=== PATIENT | male | born 1960 | race Caucasian/White ===

== ENCOUNTER 2017-04-13 08:54 | Inpatient (IN) | payer OTHER ==
[~2017-04-13] VITALS: Ht 167.6 cm; Wt 78.0 kg
[2017-04-13] MEDS ORDERED: KETOROLAC 15 MG INJ IV STA (09:24)
[2017-04-13] MEDS ORDERED: SOD CHLORIDE 0.9% 1,000 ML IV STA ×2 (09:24→11:50)
[2017-04-13] MEDS ORDERED: ONDANSETRON 4 MG INJ IV STA (09:24)
[2017-04-13] MEDS ORDERED: NITROGLYCERIN (SL) 0.4 MG TAB SL ONE (09:30)
[2017-04-13] MEDS ORDERED: ASPIRIN 81 MG TAB PO ONE (09:30)
[2017-04-13] MEDS ORDERED: MULTI GTB (09:52)
[2017-04-13] MEDS ORDERED: CLOP75TA27 GTB (09:52)
[2017-04-13] MEDS ORDERED: DONE10TA7 GTB (09:53)
[2017-04-13] MEDS ORDERED: AMIN887L6 GTB (09:53)
[2017-04-13] MEDS ORDERED: DOCU-159 GTB (09:55)
[2017-04-13] MEDS ORDERED: BASAGLAR SUBCUTANE (09:55)
[2017-04-13] MEDS ORDERED: ONDA-43 GTB (09:56)
[2017-04-13] MEDS ORDERED: LEVE500S8 GTB (09:56)
[2017-04-13] MEDS ORDERED: IPRA3AMP INHALATION (09:57)
[2017-04-13 10:02] LABS: BASOPHIL # 0.1 10^3/ul (0.0-0.1); BASOPHILS % 1.1 % (0.0-2.0); HEMATOCRIT 37.6 % (42.0-52.0); LYMPHOCYTES # 1.3 10^3/ul (0.8-2.9); LYMPHOCYTES % 28.1 % (15.0-51.0); MEAN CORPUSCULAR HEMOGLOBIN 31.5 pg (29.0-33.0); MEAN CORPUSCULAR HGB CONC 34.6 g/dl (32.0-37.0); MEAN PLATELET VOLUME 10.8 fl (7.4-10.4); MONOCYTE # 0.4 10^3/ul (0.3-0.9); MONOCYTES % 7.9 % (0.0-11.0); NEUTROPHILS % 62.7 % (39.0-77.0); PLATELET COUNT 191 10^3/UL (140-415); RED BLOOD COUNT 4.13 10^6/ul (4.70-6.10); RED CELL DISTRIBUTION WIDTH 12.3 % (11.5-14.5); WHITE BLOOD COUNT 4.5 10^3/ul (4.8-10.8)
[2017-04-13 10:22] LABS: ALANINE AMINOTRANSFERASE 25 IU/L (13-69); ALBUMIN 4.2 g/dl (3.3-4.9); ALBUMIN/GLOBULIN RATIO 1.31; ALKALINE PHOSPHATASE 52 IU/L (42-121); ANION GAP 12 (8-16); ASPARTATE AMINO TRANSFERASE 14 IU/L (15-46); BILIRUBIN,INDIRECT 0.3 mg/dl (0-1.1); BILIRUBIN,TOTAL 0.3 mg/dl (0.2-1.3); BLOOD UREA NITROGEN 13 mg/dl (7-20); CALCIUM 9.3 mg/dl (8.4-10.2); CARBON DIOXIDE 26 mmol/L (21-31); CHLORIDE 105 mmol/L (97-110); CREATININE 0.76 mg/dl (0.61-1.24); GLUCOSE 312 mg/dl (70-220); POTASSIUM 4.4 mmol/L (3.5-5.1); SODIUM 139 mmol/L (135-144); TOTAL PROTEIN 7.4 g/dl (6.1-8.1)
--- NOTE | 2017-04-13 10:26 | RADRPT ---
PROCEDURE: XR Chest. CLINICAL INDICATION: Abdominal pain. TECHNIQUE: Single frontal view. COMPARISON: None. FINDINGS: The lungs are clear. The heart size is normal. There is no pleural effusion. There is no pneumothorax. IMPRESSION: 1. Normal chest radiograph. RPTAT: QQ .Mariano Mcmillan MD, Date Time Electronically viewed and signed by .Mariano Mcmillan MD, on 04/13/2017 10:26 .R/
[2017-04-13 10:41] LABS: TROPONIN-I < 0.012 ng/ml (0.00-0.12)
--- NOTE | 2017-04-13 10:42 | ERA ---
ER Documentation Chief Complaint Date/Time DATE: 04/13/17 TIME: 10:40 Chief Complaint CHEST PAIN, SOB, AUSTRALIAN SPEAKING, INFO FROM ETIQUETTE COACH HPI 56-year-old man complains of exertional chest pain and intermittent shortness of breath 1 week, he and his state they have an appointment with renal dialysis technician Dr. Harkins for possible diagnostic angiogram scheduled for next month but because of recent chest pain that he came to the ER for evaluation. He has had no fevers or chills, no claudication, no abdominal pain, no vomiting or diarrhea. Patient did suffer an CO 10 years ago he had no stent placement, and has a history of diabetes mellitus and hypertension ROS All systems reviewed and are negative except as per history of present illness. Medications Home Meds Reported Medications Acetaminophen* (Tylenol*) 500 Mg Tab, 500 MG PO Q4H Y for MILD PAIN LEVEL 1-3, TAB 04/13/17 Discontinued Reported Medications Ipratropium-Albuterol (Ipratropium-Albuterol) 0.5-3 Mg/3 Ml Ampul.neb, 3 ML INHALATION Q4 Y for WHEEZING AND SOB, #30 VIAL 04/13/17 Ondansetron Hcl* (Zofran*) 4 Mg Tab, 4 MG GTB Q4H Y for NAUSEA AND OR VOMITING, TAB 04/13/17 Levetiracetam* (Keppra*) 500 Mg/5 Ml Solution, 500 MG GTB BID, BOTTLE 04/13/17 [Basaglar] No Conflict Check, 20 UNITS SUBCUTANE QHS 04/13/17 Docusate Sodium* (Docusate Sodium*) 100 Mg Capsule, 100 MG GTB BID, #60 CAP 04/13/17 Donepezil* (Donepezil*) 10 Mg Tablet, 10 MG GTB DAILY, #30 TAB 04/13/17 Amino Acids/Protein Hydrolys (PRO-STAT AWC LIQUID) 887 Ml Liquid, 30 ML GTB DAILY 04/13/17 Clopidogrel Bisulfate (Clopidogrel) 75 Mg Tablet, 75 MG GTB DAILY, #30 TAB 04/13/17 Multivitamins* (Theragran*) 1 Tab Tab, 1 TAB GTB DAILY, TAB 04/13/17 Allergies Allergies: Coded Allergies: No Known Allergy (Unverified , 04/13/17) PMhx/Soc Hypertension, diabetes mellitus, coronary artery disease, previous CO Hx Miscellaneous Medical Probl: Yes (DIABETEDS, HIGH BLOOD PRESURE, NSTEMI) Hx Alcohol Use: No Hx Substance Use: No Hx Tobacco Use: No Smoking Status: Never smoker FmHx Family History: No diabetes Physical Exam Vitals Vital Signs Date Time Temp Pulse Resp B/P Pulse Ox O2 Delivery O2 Flow Rate FiO2 04/13/17 12:40 77 17 122/78 100 04/13/17 09:31 79 17 113/84 100 04/13/17 08:57 97.1 87 17 114/79 100 Physical Exam GENERAL: Well-developed, well-nourished, well-hydrated, in no apparent distress , looks nontoxic in appearance HEENT: Moist mucous membranes, pink conjunctiva, no cervical spine tenderness or step-off deformities, no goiter, no jaundice or icterus, extraocular movements intact without pain. No submandibular induration, and no pharyngeal erythema NEURO: Alert and oriented 3, cranial nerves II through XII intact bilaterally, pupils equal round reactive to light, no focal deficits or facial asymmetry, sensation intact distally Strength 5/5 in upper and lower extremities bilaterally CARDIAC: Regular rate and rhythm, no murmurs rubs or gallops LUNGS: Clear bilaterally no wheezing crackles or stridor ABDOMEN: Soft nontender, no guarding, no rigidity, no rebound, no psoas sign no obturator sign. Normoactive bowel sounds SKIN: Warm and dry to touch, no abrasions, contusions, or hematomas, no lacerations, no ecchymosis, no target lesions, and without ulcers EXTREMITIES: No clubbing cyanosis or edema, calves are bilaterally symmetrical, no Homans sign, no popliteal cord sign. Distal pulses equal and bilateral PSYCH: Normal affect without agitation or irritability Result Diagram: 04/13/1736 04/13/1736 Results 24 hrs Laboratory Tests Test 04/13/17 09:36 White Blood Count 4.510^3/ul Red Blood Count 4.1310^6/ul Hemoglobin 13.0g/dl Hematocrit 37.6% Mean Corpuscular Volume 91.0fl Mean Corpuscular Hemoglobin 31.5pg Mean Corpuscular Hemoglobin Concent 34.6g/dl Red Cell Distribution Width 12.3% Platelet Count 72970^3/UL Mean Platelet Volume 10.8fl Neutrophils % 62.7% Lymphocytes % 28.1% Monocytes % 7.9% Eosinophils % 0.0% Basophils % 1.1% Nucleated Red Blood Cells % 0.0/100WBC Neutrophils # (Manual) 2.810^3/ul Lymphocytes # 1.310^3/ul Monocytes # 0.410^3/ul Eosinophils # 0.010^3/ul Basophils # 0.110^3/ul Nucleated Red Blood Cells # 0.010^3/ul Sodium Level 139mmol/L Potassium Level 4.4mmol/L Chloride Level 105mmol/L Carbon Dioxide Level 26mmol/L Anion Gap 12 Blood Urea Nitrogen 13mg/dl Creatinine 0.76mg/dl Glucose Level 312mg/dl Calcium Level 9.3mg/dl Total Bilirubin 0.3mg/dl Direct Bilirubin 0.00mg/dl Indirect Bilirubin 0.3mg/dl Aspartate Amino Transf (AST/SGOT) 14IU/L Alanine Aminotransferase (ALT/SGPT) 25IU/L Alkaline Phosphatase 52IU/L Troponin I < 0.012ng/ml Total Protein 7.4g/dl Albumin 4.2g/dl Globulin 3.20g/dl Albumin/Globulin Ratio 1.31 Lipase 79U/L Current Medications Medications (Trade) Dose Ordered Sig/Kirill Route PRN Reason Start Time Stop Time Status Last Admin Dose Admin Sodium Chloride (NS) 1,000 ml @ 1,000 mls/hr Q1H STAT IV 04/13/17 09:24 04/13/17 10:23 DC 04/13/17 09:48 Ondansetron HCl (Zofran Inj) 4 mg ONCE STAT IV 04/13/17 09:24 04/13/17 09:28 DC 04/13/17 09:45 Ketorolac Tromethamine (Toradol) 15 mg ONCE STAT IV 04/13/17 09:24 04/13/17 09:28 DC 04/13/17 09:46 Aspirin (Aspirin) 324 mg ONCE ONCE PO 04/13/17 09:30 04/13/17 09:31 DC 04/13/17 09:47 Nitroglycerin 1 tab 1 tab ONCE ONCE SL 04/13/17 09:30 04/13/17 09:31 DC 04/13/17 09:48 Sodium Chloride (NS) 1,000 ml @ 1,000 mls/hr Q1H STAT IV 04/13/17 11:50 04/13/17 11:54 DC Procedures/MDM IV line was established patient was placed on electrical engineering professor rhythm strip revealed a sinus rhythm at about 90 bpm. Patient was afebrile. EKG performed, read by me revealed a normal sinus rhythm at 90 bpm, normal axis , left ventricular conduction delay with a QRS duration of 102 ms, no concerning ST elevations or depressions noted. Chest X-ray 1V Interpreted by me: Soft Tissue: No acute abnormalities Bones: No acute abnormalities Mediastinum/Cardiac Silhouette/Lungs: No acute abnormalities I administered 1 L normal saline intravenously, aspirin 324 mg p.o. for cardioprotective measures, nitroglycerin 0.4 mg sublingual, Toradol 50 mg IV, and Zofran 4 mg IV with good effect. CBC and electrolytes were normal, liver function tests were normal, troponin was negative. I spoke to renal dialysis technician Dr. Harkins regarding the patient's presentation, symptomatology, and scheduled appointment. He recommended admission for continued medical management and cardiology consultation, possibly inpatient coronary angiography. Departure Diagnosis: Primary Impression: Chest pain Qualified Code: R07.9 - Chest pain, unspecified type Condition: Stable MARIE YUAN MD Apr 13, 2017 10:42
[2017-04-13] MEDS ORDERED: TYL500 PO (11:04)
[2017-04-13] MEDS ORDERED: ACETAMINOPHEN 325 MG TAB PO PRN ×2 (16:30→19:30)
[2017-04-13] MEDS ORDERED: ONDANSETRON 4 MG INJ IV PRN ×2 (16:30→19:30)
--- NOTE | 2017-04-13 17:27 | CONS ---
DATE OF ADMISSION: 04/13/2017 DATE OF CONSULTATION: 04/13/2017 REASON FOR CONSULTATION: Chest pain. Assess acute coronary syndrome. REFERRING PHYSICIAN: Joe Ramirez MD, from the emergency department. HISTORY OF PRESENT ILLNESS: Mr. Navarrete is a 56-year-old male with a history of hypertension, dyslipidemia, diabetes mellitus, prior [place] 10 years prior, seizure disorder. He is on Aricept. He presents with complaints of intermittent exertional substernal chest pain described as a pressure-like sensation, associated shortness of breath times approximately 1 week. Upon arrival in the emergency department, temperature 97.1, blood pressure 114/79, pulse 87, respiratory rate 17, sating 100 percent. LABORATORY: White count 4.5, hemoglobin 13.0, platelet count 191. Sodium 139, potassium 4.4, creatinine 0.7, BUN 13, AST 14, ALT 25. Troponin negative. Lipase 79. The patient underwent a chest x-ray, revealing normal chest radiograph. Lungs are clear. Patient's electrocardiogram revealed sinus rhythm, rate of 90. Megan normal axis with nonspecific ST-T abnormalities. In the emergency department, the patient was treated with IV fluid hydration, aspirin 324 mg, sublingual nitroglycerin, Toradol 50 mg IV, Zofran 4 mg, and now awaits admit to floor. PAST MEDICAL HISTORY: As above in HPI. CURRENT MEDICATIONS: Currently in-hospital are pending. MEDICATIONS PRIOR TO ADMIT: 1. Tylenol. 2. Atrovent. 3. Zofran. 4. Keppra. 5. Colace. 6. Aricept. 7. Plavix 70 mg. 8. Multivitamin. ALLERGIES: NO KNOWN DRUG ALLERGIES. SOCIAL HISTORY: No tobacco, EtOH, or illicit drug use. FAMILY HISTORY: Negative. REVIEW OF SYSTEMS: As above in HPI. CONSTITUTIONAL: No fevers, chills. RESPIRATORY: Shortness of breath. CARDIOVASCULAR: Chest pain. GASTROINTESTINAL: No vomiting. GENITOURINARY: No hematuria. MUSCULOSKELETAL: Degenerative joint disease. PSYCH: The patient has depression. NEUROLOGIC: Dementia. PHYSICAL EXAMINATION: VITAL SIGNS: Temperature of 97.1, blood pressure most recently 110/84, pulse 85, pulse 72, and 100 percent. GENERAL: The patient is alert, awake, and complaining of intermittent substernal chest pain. NECK: JVP approximately 8 to 9 cm of water. LUNGS: Fair air movement throughout. HEART: Regular rate and rhythm. Normal S1, S2; 1/6 systolic murmur. Nondisplaced PMI. ABDOMEN: Positive bowel sounds. Soft. EXTREMITIES: No edema. One plus pulses. Bilateral posterior. LABS: As above in HPI with most recently from today white blood cell count 4.5, hemoglobin 13.0, platelet count 191. Sodium 139, potassium 4.4, creatinine 0.7, BUN of 13, glucose of 312. Troponin negative. IMAGING STUDIES: As above in HPI. No further images are reviewed at this time. ECG as above in HPI. IMPRESSION: 1. Chest pain. Assess for acute coronary syndrome. 2. Hypertension. 3. Abnormal electrocardiogram. Assess for acute cardiac syndrome. 4. History of abnormal cardiac stress test on outpatient. 5. Dyslipidemia. 6. History of myocardial infarction. 7. Dementia by medications. 8. Diabetes mellitus with uncontrolled blood sugars. 9. Mild anemia. RECOMMENDATIONS: 1. At this time, would admit patient to telemetry monitoring to follow rhythm and rate closely and complete rule out for myocardial infarction. The patient's chest pain is not due to acute coronary syndrome. 2. Troponin q.6 x3. 3. Initiate the patient on medical therapy for his chest pain and also start beta peyton and oral nitrates and check a 2D echo for reassessment of patient's ejection fraction at this time. Check a BNP to further assess patient's current volume status and check a fasting lipid panel. Initiate lipid medication as necessary. 4. We will give the patient sublingual nitroglycerin for cramps in chest bones and maintain patient on Plavix. In addition, we will start aspirin. 5. Further workup and treatment on the patient will be made as the patient progresses and based on the patient's hospital clinical course with the possibility catheterization if the scheduling in the dental laboratory supervisor is allowed. Dictated By: Kleber Harkins MD /beni/ector /Document#: [id number]
[2017-04-13 17:56] VITALS: TEMP 97.8
--- NOTE | 2017-04-13 19:15 | HP ---
Date/Time of Note Date/Time of Note DATE: 04/13/17 TIME: 19:08 Assessment/Plan VTE Prophylaxis VTE Prophylaxis Intervention: SCD's Assessment/Plan Chief Complaint/Hosp Course 1. Chest pain Cardiology consultation appreciated Continue cardiac meds Trend troponins 2. Questionable history of diabetes Check A1c 3. Hypertension-stable cont meds Prophylaxis:SCDs Problems: HPI/ROS Admit Date/Time Admit Date/Time April 13, 2017 Hx of Present Illness Patient is 56-year-old male with history of diabetes, hypertension and [place] presents with exertional chest pain and intermittent shortness of breath 1 week , he and his state they have an appointment with manager background Dr. Harkins for possible diagnostic angiogram scheduled for next month but came in because of chest pain. Pt has no other acute complaints. ROS Constitutional: improved, no complaints Eyes: no complaints ENT: no complaints Respiratory: no complaints Cardiovascular: chest pain Gastrointestinal: no complaints Genitourinary: no complaints Musculoskeletal: no complaints Skin: no complaints Neurologic: no complaints Endocrine: no complaints Lymphatic: no complaints Psychological: nl mood/affect, no complaints Immunologic: no complaints PMH/Family/Social Past Medical History Per HPI Family History Significant Family History: no pertinent family hx Social History Alcohol Use: rarely Smoking Status: Never smoker Drug Use: none Exam/Review of Systems Vital Signs Vitals Vital Signs Date Time Temp Pulse Resp B/P Pulse Ox O2 Delivery O2 Flow Rate FiO2 04/13/17 19:01 78 18 115/89 99 Room Air 04/13/17 17:56 97.8 Exam Constitutional: alert, oriented Head: normocephalic Respiratory: clear to auscultation Cardiovascular: regular rate and rhythm Gastrointestinal: soft, No distended Musculoskeletal: nl extremities to inspection Labs Result Diagram: 04/13/17 0936 04/13/17 0936 Medications Medications Current Medications Isosorbide Dinitrate (Isordil) 20 mg TID PO ; Start 04/13/17 at 21:00 Metoprolol Tartrate (Lopressor) 25 mg BID PO ; Start 04/13/17 at 21:00 CHRISS HAYES Apr 13, 2017 19:15
[2017-04-13] MEDS ORDERED: DOCUSATE SODIUM 100 MG CAP PO PRN (19:30)
[2017-04-13] MEDS ORDERED: NACL 0.9% 3 ML SYG IV SCH (19:30)
[2017-04-13] MEDS ORDERED: HYDROCODONE/APAP (5/325) TAB PO PRN (19:30)
[2017-04-13] MEDS ORDERED: ZOLPIDEM 5 MG TAB PO PRN (19:30)
[2017-04-13] MEDS ORDERED: morphine 2 MG INJ IV PRN (19:30)
[2017-04-13 19:46] VITALS: Ht 167.6 cm; Wt 78.0 kg
[2017-04-13 19:55] VITALS: BP 112/73; RESP 16
[2017-04-13 20:34] VITALS: PULSE 80
[2017-04-13] MEDS: METOPROLOL 25 MG TAB PO SCH (21:00)
[2017-04-13] MEDS: ISOSORBIDE DINITRATE 20 MG TAB PO SCH (21:00)
[2017-04-14] VITALS (32 sets, daily range): BP systolic 90–116; BP diastolic 52–73; PULSE 68–78; RESP 16–29
[2017-04-14 07:26] LABS: BASOPHIL # 0.1 10^3/ul (0.0-0.1); HEMATOCRIT 37.2 % (42.0-52.0); HEMOGLOBIN 12.2 g/dl (14.0-18.0); LYMPHOCYTES # 1.6 10^3/ul (0.8-2.9); LYMPHOCYTES % 24.4 % (15.0-51.0); MEAN CORPUSCULAR HGB CONC 32.8 g/dl (32.0-37.0); MEAN CORPUSCULAR VOLUME 91.6 fl (82.0-101.0); MEAN PLATELET VOLUME 11.5 fl (7.4-10.4); MONOCYTE # 0.4 10^3/ul (0.3-0.9); MONOCYTES % 6.1 % (0.0-11.0); NEUTROPHIL # 4.6 10^3/ul (1.6-7.5); NEUTROPHILS % 68.4 % (39.0-77.0); PLATELET COUNT 167 10^3/UL (140-415); RED BLOOD COUNT 4.06 10^6/ul (4.70-6.10); RED CELL DISTRIBUTION WIDTH 12.5 % (11.5-14.5); WHITE BLOOD COUNT 6.7 10^3/ul (4.8-10.8)
[2017-04-14 07:50] LABS: CHOL/HDL RATIO 5.7 RATIO
[2017-04-14 07:53] LABS: CALCIUM 9.6 mg/dl (8.4-10.2); CREATININE 0.83 mg/dl (0.61-1.24); MAGNESIUM 1.7 mg/dl (1.7-2.5); PHOSPHORUS 3.6 mg/dl (2.5-4.9); POTASSIUM 4.5 mmol/L (3.5-5.1)
[2017-04-14] MEDS: ISOSORBIDE DINITRATE 20 MG TAB PO SCH ×3 (09:53→21:00)
[2017-04-14] MEDS: METOPROLOL 25 MG TAB PO SCH (09:54)
[2017-04-14] MEDS ORDERED: GLUCOSE GEL 15 GRAM TUBE PO PRN ×2 (14:30)
[2017-04-14] MEDS ORDERED: DEXTROSE 50% 50 ML SYRINGE IV PRN ×2 (14:30)
[2017-04-14] MEDS ORDERED: GLUCAGON 1 MG INJ IM PRN (14:30)
[2017-04-14] MEDS ORDERED: GLUCOSE GEL 15 GRAM TUBE BUCCAL PRN (14:30)
--- NOTE | 2017-04-14 16:29 | PN ---
Date/Time of Note Date/Time of Note DATE: 04/14/17 TIME: 16:27 Assessment/Plan VTE Prophylaxis VTE Prophylaxis Intervention: SCD's Lines/Catheters IV [facility] Peripheral IV Urinary Cath still in place: No Assessment/Plan Chief Complaint/Hosp Course 1. Chest pain Cardiology consultation appreciated, plan is for cardiac cath today Continue cardiac meds Troponins are negative 2. Diabetes with an A1c of 9.0 Start scheduled insulin and NovoLog sliding scale wellness educator consultation 3. Hypertension-stable cont meds Prophylaxis:SCDs Problems: Subjective 24 Hr Interval Summary Constitutional: no complaints Exam/Review of Systems Vital Signs Vitals Vital Signs Date Time Temp Pulse Resp B/P Pulse Ox O2 Delivery O2 Flow Rate FiO2 04/14/17 16:13 78 04/14/17 15:20 98.2 18 100/62 98 04/13/17 19:01 Room Air Intake and Output 04/13/17 04/13/17 04/14/17 14:59 22:59 06:59 Intake Total 200 ml Balance 200 ml Exam Constitutional: alert, oriented Respiratory: clear to auscultation Cardiovascular: regular rate and rhythm Gastrointestinal: soft, No distended Musculoskeletal: nl extremities to inspection Results Result Diagram: 04/14/17 0559 04/14/17 0559 Results 24 hrs Laboratory Tests Test 04/13/17 18:00 04/13/17 21:04 04/14/17 00:43 04/14/17 05:59 Troponin I < 0.012 < 0.012 0.013 Bedside Glucose 149 White Blood Count 6.7 # Red Blood Count 4.06 L Hemoglobin 12.2 L Hematocrit 37.2 L Mean Corpuscular Volume 91.6 Mean Corpuscular Hemoglobin 30.0 Mean Corpuscular Hemoglobin Concent 32.8 Red Cell Distribution Width 12.5 Platelet Count 167 Mean Platelet Volume 11.5 H Neutrophils % 68.4 Lymphocytes % 24.4 Monocytes % 6.1 Eosinophils % 0.0 Basophils % 1.0 Nucleated Red Blood Cells % 0.0 Neutrophils # 4.6 Lymphocytes # 1.6 Monocytes # 0.4 Eosinophils # 0.0 Basophils # 0.1 Nucleated Red Blood Cells # 0.0 Sodium Level 137 Potassium Level 4.5 Chloride Level 107 Carbon Dioxide Level 27 Anion Gap 8 Blood Urea Nitrogen 15 Creatinine 0.83 Glucose Level 211 # Hemoglobin A1c 9.0 H Calcium Level 9.6 Phosphorus Level 3.6 Magnesium Level 1.7 Triglycerides Level 187 H Cholesterol Level 189 LDL Cholesterol, Calculated 119 HDL Cholesterol 33 Cholesterol/HDL Ratio 5.7 Medications Medications Current Medications Isosorbide Dinitrate (Isordil) 20 mg TID PO Last administered on 04/14/17 09: 53; Admin Dose 20 MG; Start 04/13/17 at 21:00 Metoprolol Tartrate (Lopressor) 25 mg BID PO Last administered on 04/14/17 09: 54; Admin Dose 25 MG; Start 04/13/17 at 21:00 Ondansetron HCl (Zofran Inj) 4 mg Q6H PRN IV NAUSEA AND/OR VOMITING; Start at 19:30 Acetaminophen (Tylenol Tab) 650 mg Q6H PRN PO PAIN LEVEL 1-3 OR FEVER; Start at 19:30 Acetaminophen/ Hydrocodone Bitart ([place] (5/325)) 1 tab Q6H PRN PO MODERATE PAIN LEVEL 4-6; Start 04/13/17 at 19:30 Morphine Sulfate (morphine) 2 mg Q4H PRN IV SEVERE PAIN LEVEL 7-10; Start 04/13 at 19:30 Docusate Sodium (Colace) 100 mg Q12H PRN PO CONSTIPATION; Start 04/13/17 at 19: 30 Zolpidem Tartrate (Ambien) 5 mg QHS PRN PO SLEEP; Start 04/13/17 at 19:30 Insulin Glargine (Lantus) 16 unit DAILY@08 SC ; Start 04/15/17 at 08:00 Diagnostic Test (Pha) (Accu-Chek) 1 ea 02 XX ; Start 04/15/17 at 02:00 Miscellaneous Information 1 ea NOTE XX ; Start 04/14/17 at 14:30 Glucose (Glutose) 15 gm Q15M PRN PO DECREASED GLUCOSE; Start 04/14/17 at 14:30 Glucose (Glutose) 22.5 gm Q15M PRN PO DECREASED GLUCOSE; Start 04/14/17 at 14: 30 Dextrose (D50w Syringe) 25 ml Q15M PRN IV DECREASED GLUCOSE; Start 04/14/17 at 14:30 Dextrose (D50w Syringe) 50 ml Q15M PRN IV DECREASED GLUCOSE; Start 04/14/17 at 14:30 Glucagon (Glucagen) 1 mg Q15M PRN IM DECREASED GLUCOSE; Start 04/14/17 at 14:30 Glucose (Glutose) 15 gm Q15M PRN BUCCAL DECREASED GLUCOSE; Start 04/14/17 at 14 :30 CHRISS HAYES Apr 14, 2017 16:29
[2017-04-14] MEDS ORDERED: HEPARIN 1000 UNITS/ML 10 ML INJ ONE (16:35)
[2017-04-14] MEDS ORDERED: MIDAZOLAM 1 MG/ML 2 ML INJ ONE (16:35)
[2017-04-14] MEDS ORDERED: FENTAnyl 50 MCG/ML VIAL ONE (16:35)
[2017-04-14] MEDS ORDERED: LIDOCAINE 1% (MDV) 20 ML INJ ONE (16:35)
[2017-04-14] MEDS ORDERED: HEPARIN 1000 UNITS/NS (A-LINE) 1,000 ML ONE (16:35)
[2017-04-14] MEDS ORDERED: VERAPAMIL 5 MG INJ ONE (16:36)
[2017-04-14] MEDS ORDERED: NITROGLYCERIN (IC) 100 MCG/ML INJ ONE (16:36)
[2017-04-14] MEDS: Insulin NOVOLOG SS MILD Algorithm (SS with meals and bedtime) SC SCH ×2 (17:25→21:00)
[2017-04-14] MEDS: INSULIN ASPART [NOVOLOG] 3 ML PEN SC SCH (17:55)
[2017-04-14] MEDS ORDERED: SOD CHLORIDE 0.9% 1,000 ML IV SCH (18:06)
--- NOTE | 2017-04-14 18:06 | CONS ---
Date/Time of Note Date/Time of Note DATE: 04/14/17 TIME: 17:54 Assessment/Plan Assessment/Plan Chief Complaint/Hosp Course IMPRESSION: 1. Chest pain. Assess for acute coronary syndrome.-negative trop x 3. 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 Hypertension-borderline hotn 3. Abnormal electrocardiogram. Assess for acute cardiac syndrome. 4. History of abnormal cardiac stress test on outpatient. 5. Dyslipidemia. 6. History of myocardial infarction. 7. Dementia by medications. 8. Diabetes mellitus with uncontrolled blood sugars. 9. Mild anemia. Recc: -Tele -serial ecg's -Continue BB but change to coreg and start low dose ACEI afterload reduction -Continue low dose isordil -gentle lasix diuresis -F/U echo -CT surgical eval Problems: Consultation Date/Type/Reason Admit Date/Time Apr 13, 2017 at 16:23 Initial Consult Date 04/13/2017 Type of Consultation: cardiology Reason for Consultation chest pain Referring Provider: CHRISS HAYES Exam/Review of Systems Vital Signs Vitals Vital Signs Date Time Temp Pulse Resp B/P Pulse Ox O2 Delivery O2 Flow Rate FiO2 04/14/17 16:13 78 04/14/17 15:20 98.2 18 100/62 98 04/13/17 19:01 Room Air Intake and Output 04/13/17 04/13/17 04/14/17 15:00 23:00 07:00 Intake Total 200 ml Balance 200 ml Exam Review of Systems: CONSTITUTIONAL: No fevers, chills. PULMONARY: No sob CARDIOVASCULAR: No chest pain/palpitations GASTROINTESTINAL: No nausea/vomiting. GENITOURINARY: No hematuria/dysuria. MUSCULOSKELETAL: No myagias/arthalgias. PSYCHIATRIC: The patient denies depression. NEUROLOGIC: No weakness Constitutional: alert Psych: no complaints Head: normocephalic ENMT: mucosa pink and moist Neck: jvd (9 cm water), supple Respiratory: diminished breath sounds Cardiovascular: regular rate and rhythm Gastrointestinal: non-tender, soft Musculoskeletal: muscle tone (normal) Extremities: edema (none) Neurological: other (NO focal deficits) Results Result Diagram: 04/14/17 0559 04/14/17 0559 Results 24 hrs Laboratory Tests Test 04/13/17 18:00 04/13/17 21:04 04/14/17 00:43 04/14/17 05:59 Troponin I < 0.012 < 0.012 0.013 Bedside Glucose 149 White Blood Count 6.7 # Red Blood Count 4.06 L Hemoglobin 12.2 L Hematocrit 37.2 L Mean Corpuscular Volume 91.6 Mean Corpuscular Hemoglobin 30.0 Mean Corpuscular Hemoglobin Concent 32.8 Red Cell Distribution Width 12.5 Platelet Count 167 Mean Platelet Volume 11.5 H Neutrophils % 68.4 Lymphocytes % 24.4 Monocytes % 6.1 Eosinophils % 0.0 Basophils % 1.0 Nucleated Red Blood Cells % 0.0 Neutrophils # 4.6 Lymphocytes # 1.6 Monocytes # 0.4 Eosinophils # 0.0 Basophils # 0.1 Nucleated Red Blood Cells # 0.0 Sodium Level 137 Potassium Level 4.5 Chloride Level 107 Carbon Dioxide Level 27 Anion Gap 8 Blood Urea Nitrogen 15 Creatinine 0.83 Glucose Level 211 # Hemoglobin A1c 9.0 H Calcium Level 9.6 Phosphorus Level 3.6 Magnesium Level 1.7 Triglycerides Level 187 H Cholesterol Level 189 LDL Cholesterol, Calculated 119 HDL Cholesterol 33 Cholesterol/HDL Ratio 5.7 Medications Medications Current Medications Isosorbide Dinitrate (Isordil) 20 mg TID PO Last administered on 04/14/17 09: 53; Admin Dose 20 MG; Start 04/13/17 at 21:00 Metoprolol Tartrate (Lopressor) 25 mg BID PO Last administered on 04/14/17 09: 54; Admin Dose 25 MG; Start 04/13/17 at 21:00 Ondansetron HCl (Zofran Inj) 4 mg Q6H PRN IV NAUSEA AND/OR VOMITING; Start at 19:30 Acetaminophen (Tylenol Tab) 650 mg Q6H PRN PO PAIN LEVEL 1-3 OR FEVER; Start at 19:30 Acetaminophen/ Hydrocodone Bitart ([place] (5/325)) 1 tab Q6H PRN PO MODERATE PAIN LEVEL 4-6; Start 04/13/17 at 19:30 Morphine Sulfate (morphine) 2 mg Q4H PRN IV SEVERE PAIN LEVEL 7-10; Start 04/13 at 19:30 Docusate Sodium (Colace) 100 mg Q12H PRN PO CONSTIPATION; Start 04/13/17 at 19: 30 Zolpidem Tartrate (Ambien) 5 mg QHS PRN PO SLEEP; Start 04/13/17 at 19:30 Insulin Glargine (Lantus) 16 unit DAILY@08 SC ; Start 04/15/17 at 08:00 Diagnostic Test (Pha) (Accu-Chek) 1 ea 02 XX ; Start 04/15/17 at 02:00 Miscellaneous Information 1 ea NOTE XX ; Start 04/14/17 at 14:30 Glucose (Glutose) 15 gm Q15M PRN PO DECREASED GLUCOSE; Start 04/14/17 at 14:30 Glucose (Glutose) 22.5 gm Q15M PRN PO DECREASED GLUCOSE; Start 04/14/17 at 14: 30 Dextrose (D50w Syringe) 25 ml Q15M PRN IV DECREASED GLUCOSE; Start 04/14/17 at 14:30 Dextrose (D50w Syringe) 50 ml Q15M PRN IV DECREASED GLUCOSE; Start 04/14/17 at 14:30 Glucagon (Glucagen) 1 mg Q15M PRN IM DECREASED GLUCOSE; Start 04/14/17 at 14:30 Glucose (Glutose) 15 gm Q15M PRN BUCCAL DECREASED GLUCOSE; Start 04/14/17 at 14 :30 TENNILLE CELESTE Apr 14, 2017 18:05
[2017-04-14] MEDS ORDERED: ACETAMINOPHEN 325 MG TAB PO PRN (18:30)
[2017-04-14] MEDS ORDERED: morphine 2 MG INJ IV PRN (18:30)
[2017-04-14] MEDS ORDERED: ONDANSETRON 4 MG INJ IV PRN (18:30)
[2017-04-14] MEDS ORDERED: AL HYDROX/MG HYDROX/SIMETH 30 ML CUP PO PRN (18:30)
[2017-04-14] MEDS: HOLD all METFORMIN and METFORMIN CONTAINING medications for 48 hours post procedure. Chec XX SCH (19:00)
--- NOTE | 2017-04-14 20:14 | SIPON ---
Date/Time of Note Date/Time of Note DATE: 04/14/17 TIME: 20:12 Operative Report Preoperative Diagnosis 1.abnl MPI 2.Chest pain 3.H/O CT Postoperative Diagnosis 1.Mutivessel obstructive cad 2.Elevated LVEDP Operation/Procedure Performed 1.[facility] Surgeon See signature line Anesthesia Type: general Estimated Blood Loss: minimal Transfusion Required: no Specimen: none Grafts/Implants: none Complications: no TENNILLE CELESTE Apr 14, 2017 20:14
--- NOTE | 2017-04-14 21:40 | RADRPT ---
Echocardiogram Report Patient Name: YOLY CAVAZOS Gender: Male Date: 1960 Study Date: 14-Apr-2017 Aircraft Time Clerk: Kelly Tomlinson [facility] Location: 528 Ref. Physician: TENNILLE HARKINS Quality: Good Procedures: Transthoracic echocardiogram with complete 2D, M-Mode, and doppler examination. Indications: Chest Pain. 2D/M Mode Doppler Measurement Value Normal Ranges Measurement Value Normal Ranges LVIDd 2D 6.9 3.5 - 5.6 cm AV Peak Vicente 1.4 m/sec LVIDs 2D 6.1 2.1 - 4.1 cm AV Peak PG 8.0 mmHg FS 2D 11.1 % AI Peak PG 52.0 mmHg LVPWd 2D 0.8 0.6 - 1.1 cm AI Peak Vicente 3.6 m/sec IVSd 2D 0.9 0.6 - 1.1 cm AI PHT 554.0 msec IVS/LVPW 2D 1.1 LVOT Peak Vicente 0.7 m/sec AoR Diam 2D 2.8 2.0 - 3.7 cm LVOT Peak PG 2.0 mmHg LA/Ao 2D 1 0 - 1 TR Peak Vicente 2.3 m/sec EDV 2D 330.0 cm3 TR Peak PG 21.0 mmHg ESV 2D 231.0 cm3 RVSP 29.0 mmHg LA Dimen 2D 3.7 2.3 - 4.0 cm Findings Left Ventricle: Normal left ventricular wall thickness. Severe concentric left ventricular hypertrophy. Severe global left ventricular systolic dysfunction. Ejection fraction is visually estimated at 25 %. Right Ventricle: Normal right ventricular size. Normal right ventricular systolic function. Left Atrium: The left atrium is normal in size. Right Atrium: The right atrium is normal in size. Mitral Valve: Mitral valve leaflets appear mildly thickened. Mild mitral annular calcification. Moderate mitral valve regurgitation. Aortic Valve: No significant aortic stenosis or insufficiency. Aortic cusps appear mildly calcified. Tricuspid Valve: Normal appearance of the tricuspid valve. Estimated peak PA systolic pressure 29 mmHg. There is trace tricuspid regurgitation. Pulmonic Valve: Normal pulmonic valve appearance. There is trace pulmonic regurgitation. Pericardium: Normal pericardium with no significant pericardial effusion. Aorta: Normal aortic root. IVC: Normal size and no respiratory collapse consistent with elevated right atrial pressure. Conclusions 1.Normal left ventricular wall thickness. Severe concentric left ventricular hypertrophy. Severe global left ventricular systolic dysfunction. Ejection fraction is visually estimated at 25 %. 2.Mitral valve leaflets appear mildly thickened. Mild mitral annular calcification. Moderate mitral valve regurgitation. 3.Normal appearance of the tricuspid valve. Estimated peak PA systolic pressure 29 mmHg. There is trace tricuspid regurgitation. 4.Normal pulmonic valve appearance. There is trace pulmonic regurgitation. Electronically Signed By: Tennille Harkins 14-Apr-2017 21:39:26 -0700 Patient Name: YOLY CAVAZOS Study Date: 14-Apr-[id number]
--- NOTE | 2017-04-14 22:21 | CARRPT ---
DATE OF PROCEDURE: 04/14/2017 TYPE OF PROCEDURES: 1. Left heart catheterization. 2. Coronary angiography. 3. Measurement of left ventricular end-diastolic pressure. 4. Moderate conscious sedation. ATTENDING PHYSICIAN: Dr. Kleber Harkins. REFERRING PHYSICIAN: Dr. Kwaku Cespedes and Dr. Juan Garcia. INDICATION: Cardiomyopathy, decreased left ejection fraction, and positive stress test findings for ischemia. ANESTHESIA: Conscious and local. BRIEF HISTORY: Mr. Navarrete is a 56-year-old male, with history of hypertension, dyslipidemia, diabetes mellitus, prior tobacco intake who came in with complaints of chest pain and exertional shortness of breath. The patient subsequently underwent cardiac stress test revealing positive anterior ischemia with decreased EF. Given these findings, patient was referred for left heart catheterization. Patient was to have an outpatient catheterization, but then presented to [facility] with complaints of worsening chest pain and shortness of breath. The patient, given these findings, brought to cardiac [employer] in order to assess possibility of significant obstructive coronary disease leading to symptoms of chest pain, decreased EF and positive stress test findings. PROCEDURE: After informed consent was obtained, the patient brought to [facility], where his right radial was prepped and draped in the usual sterile fashion. Two percent lidocaine was instilled right radial area in order to achieve adequate local anesthesia. Using the modified Seldinger technique, the radial artery was cannulated and a 6 [place] arterial sheath was placed. A 6-[place] JL 3.5 catheter was used to cannulate the left main coronary ostium. With contrast injection multiple view of the left coronary artery system were obtained. JL3.5 guidewire and a JR4 was used to cannulate the right coronary arterial ostium. Contrast injection was used and multiple views were obtained. JR4 guidewire after initially being used to measure left end-diastolic pressure, given the findings at this time of significant diffuse severe obstructive coronary artery disease the procedure was terminated. The patient's sheath was removed. TR band was applied. This completed the procedure. There were no known complications. FINDINGS: 1. Coronary angiography. Left main 3.5 mm no significant stenosis. Circumflex proximally is a 3 mm vessel, and has stenosis up to approximately a 30 to 40 percent. The circumflex AV groove has severe diffuse disease. There is a mid branching obtuse marginal, which is a 2 mm vessel has a very focal 80-90 percent stenosis. There is a proximal branching diagonal, 2 mm vessel with moderate diffuse disease. There exists what appears to be a ramus branch, 2 mm vessel with diffuse moderate to severe disease. The LAD proximally is a 2.5 mm vessel and its midportion is 100 percent occluded. There was a very large septal branch that can be seen to give additional collateral flow to some of the right coronary artery and goes towards the apex. Distally there is a network of collaterals that can be seen to recapitulate some of the LAD towards the apex. The right coronary artery proximally is a 3 mm vessel and its midportion appears to be subtotally occluded versus total occluded with bridging collaterals. There is a focal approximately 80 percent stenosis midportion. There is diffuse stenosis up to approximately 70 percent. There is a 90 to 95 percent subtotal occlusion. The right coronary artery is a dominant vessel and gives off a 2 mm PDA that has an 80 to 90 percent proximal ostial stenosis. The right coronary artery can see to give [id number] collateral flow. With some very faint hint of a recapitulation of LAD on the final pictures heading towards the apex. 2. Measurement of left end-diastolic pressure of 31 to 33. No significant aortic stenosis by gradient. TOTAL FLUOROSCOPY TIME: 3.7 minutes. TOTAL CONTRAST: 65 cc. IMPRESSION: 1. Severe multivessel obstructive coronary artery disease. 2. Elevated left heart filling pressures. 3. No significant aortic stenosis by gradient. RECOMMENDATIONS: In light of procedure findings at this time would: 1. Maximize medical management. 2. Aggressive risk factor rate. 3. Patient will be referred for consideration of coronary artery bypass graft surgery versus high risk multivessel PCI. Dictated By: Kleber Harkins MD /[email or web address] /Document#: [id number] SIMON
[2017-04-15] VITALS (13 sets, daily range): BP systolic 98–117; BP diastolic 58–73; PULSE 68–80; RESP 18–20
[2017-04-15] MEDS ORDERED: ACCU-CHEK XX SCH ×3 (02:00)
[2017-04-15] MEDS: ACCU-CHEK XX SCH (02:00)
[2017-04-15] MEDS: Insulin NOVOLOG SS MILD Algorithm (SS with meals and bedtime) SC SCH ×4 (07:30→20:25)
[2017-04-15] MEDS: INSULIN ASPART [NOVOLOG] 3 ML PEN SC SCH ×3 (07:55→17:57)
[2017-04-15] MEDS: INSULIN GLARGINE [LANtus] 3 ML PEN SC SCH (08:00)
[2017-04-15] MEDS: FUROSEMIDE 20 MG TAB PO SCH (10:25)
[2017-04-15] MEDS: ISOSORBIDE DINITRATE 20 MG TAB PO SCH ×3 (10:26→20:08)
[2017-04-15] MEDS: LISINOPRIL 5 MG TAB PO SCH (10:26)
--- NOTE | 2017-04-15 15:44 | CONS ---
Date/Time of Note Date/Time of Note DATE: 04/15/17 TIME: 15:42 Assessment/Plan Assessment/Plan Additional Assessment/Plan 1. Chest pain. Assess for acute coronary syndrome.-negative trop x 3. Now s/ p LHC with severe multivessel obstructive cad - s/p LHC - severe Dz - surgical eval pending. 2. Hypertension-borderline hotn - better now. 3. Abnormal electrocardiogram. Assess for acute cardiac syndrome. 4. History of abnormal cardiac stress test on outpatient - now Severe dz. 5. Dyslipidemia. 6. History of myocardial infarction 7. Dementia by medications. 8. Diabetes mellitus with uncontrolled blood sugars - con't to keep euglycemic. 9. Mild anemia. Consultation Date/Type/Reason Admit Date/Time Apr 13, 2017 at 16:23 Initial Consult Date Type of Consultation: cardiology Referring Provider: CHRISS HAYES 24 HR Interval Summary Free Text/Dictation NO acute events - surgical eval in progress - no ectopy now. ROS: No fever, no chills, no nausea, no vomiting, no diarrhea/constipation No recent weight changes No chest pain, no PND, no orthopnea No dizziness, blurred vision No thirst, no heat or cold intolerance Exam/Review of Systems Vital Signs Vitals Vital Signs Date Time Temp Pulse Resp B/P Pulse Ox O2 Delivery O2 Flow Rate FiO2 04/15/17 15:27 98.2 71 19 101/59 98 04/14/17 20:03 Room Air Intake and Output 04/14/17 04/14/17 04/15/17 15:00 23:00 07:00 Intake Total 900 ml 625 ml Balance 900 ml 625 ml Exam General: WN/WD/NAD, AOx 3 HEENT: Unicetric/atraumatic/EOMI (follows commands) NECK: JVD elevated, no thyromegaly Lymph: no lymphadenopathy HEART: regular with no S3, II/ systolic murmur at apex LUNGS: Coarse sounds ABD: soft, NT, ND, +BS : Intact Neuro: non focal SKIN: chronic changes EXT: trace edema Results Result Diagram: 04/14/17 0559 04/14/17 0559 Results 24 hrs Laboratory Tests Test 04/14/17 18:42 04/14/17 21:06 04/15/17 07:35 04/15/17 12:31 Bedside Glucose 169 185 188 198 Test 04/15/17 14:54 04/15/17 15:30 Bedside Glucose 82 151 Medications Medications Current Medications Ondansetron HCl (Zofran Inj) 4 mg Q6H PRN IV NAUSEA AND/OR VOMITING; Start at 19:30 Acetaminophen (Tylenol Tab) 650 mg Q6H PRN PO PAIN LEVEL 1-3 OR FEVER; Start at 19:30 Acetaminophen/ Hydrocodone Bitart ([place] (5/325)) 1 tab Q6H PRN PO MODERATE PAIN LEVEL 4-6; Start 04/13/17 at 19:30 Morphine Sulfate (morphine) 2 mg Q4H PRN IV SEVERE PAIN LEVEL 7-10; Start 04/13 at 19:30 Docusate Sodium (Colace) 100 mg Q12H PRN PO CONSTIPATION; Start 04/13/17 at 19: 30 Zolpidem Tartrate (Ambien) 5 mg QHS PRN PO SLEEP; Start 04/13/17 at 19:30 Insulin Glargine (Lantus) 16 unit DAILY@08 SC ; Start 04/15/17 at 08:00 Diagnostic Test (Pha) (Accu-Chek) 1 ea 02 XX ; Start 04/15/17 at 02:00 Miscellaneous Information 1 ea NOTE XX ; Start 04/14/17 at 14:30 Glucose (Glutose) 15 gm Q15M PRN PO DECREASED GLUCOSE; Start 04/14/17 at 14:30 Glucose (Glutose) 22.5 gm Q15M PRN PO DECREASED GLUCOSE; Start 04/14/17 at 14: 30 Dextrose (D50w Syringe) 25 ml Q15M PRN IV DECREASED GLUCOSE; Start 04/14/17 at 14:30 Dextrose (D50w Syringe) 50 ml Q15M PRN IV DECREASED GLUCOSE; Start 04/14/17 at 14:30 Glucagon (Glucagen) 1 mg Q15M PRN IM DECREASED GLUCOSE; Start 04/14/17 at 14:30 Glucose (Glutose) 15 gm Q15M PRN BUCCAL DECREASED GLUCOSE; Start 04/14/17 at 14 :30 Isosorbide Dinitrate (Isordil) 10 mg TID PO Last administered on 04/15/17t 13: 17; Admin Dose 10 MG; Start 04/14/17 at 21:00 Carvedilol (Coreg) 3.125 mg BID PO Last administered on 04/15/17 10:32; Admin Dose 3.125 MG; Start 04/14/17 at 21:00 Lisinopril (Zestril) 2.5 mg DAILY PO Last administered on 04/15/17 10:26; Admin Dose 2.5 MG; Start 04/15/17 at 09:00 Furosemide (Lasix) 20 mg DAILY PO Last administered on 04/15/17 10:25; Admin Dose 20 MG; Start 04/15/17 at 09:00 Miscellaneous Information (* Miscellaneous Pharmacy Order) HOLD all METFORMIN ... ONCE XX ; Start 04/14/17 at 18:30; Stop 04/16/17 at 18:29 Acetaminophen (Tylenol Tab) 650 mg Q4H PRN PO NON-CARDIAC PAIN LEVEL (1-3); Start 04/14/17 at 18:30 Morphine Sulfate (morphine) 2 mg Q2H PRN IV FOR NON CARDIAC PAIN (4-10); Start 04/14/17 at 18:30 Al Hydrox/Mg Hydrox/Simethicone (Mag-Al Plus) 30 ml Q4H PRN PO GASTROINTESTINAL UPSET; Start 04/14/17 at 18:30 Ondansetron HCl (Zofran Inj) 4 mg Q4H PRN IV NAUSEA AND/OR VOMITING; Start at 18:30 BUCK BEYER MD Apr 15, 2017 15:44
[2017-04-15] MEDS: HOLD all METFORMIN and METFORMIN CONTAINING medications for 48 hours post procedure. Chec XX SCH (18:30)
--- NOTE | 2017-04-15 18:53 | PN ---
Date/Time of Note Date/Time of Note DATE: 04/15/17 TIME: 18:51 Assessment/Plan VTE Prophylaxis VTE Prophylaxis Intervention: SCD's Lines/Catheters IV Catheter Type (from Nrsg): Peripheral IV Urinary Cath still in place: No Assessment/Plan Chief Complaint/Hosp Course 1. Chest pain Heart cath showed multivessel disease, surgical eval is pending Continue cardiac meds 2. Diabetes with an A1c of 9.0-sugars now improved Continue scheduled insulin and NovoLog sliding scale produce associate consultation 3. Hypertension-stable cont meds Prophylaxis:SCDs Problems: Subjective 24 Hr Interval Summary Constitutional: no complaints Exam/Review of Systems Vital Signs Vitals Vital Signs Date Time Temp Pulse Resp B/P Pulse Ox O2 Delivery O2 Flow Rate FiO2 04/15/17 16:00 72 04/15/17 15:27 98.2 19 101/59 98 04/14/17 20:03 Room Air Intake and Output 04/14/17 04/14/17 04/15/17 15:00 23:00 07:00 Intake Total 900 ml 625 ml Balance 900 ml 625 ml Exam Constitutional: alert Respiratory: clear to auscultation Cardiovascular: regular rate and rhythm Gastrointestinal: soft, No distended Musculoskeletal: nl extremities to inspection Results Result Diagram: 04/14/17 0559 04/14/17 0559 Results 24 hrs Laboratory Tests Test 04/14/17 21:06 04/15/17 07:35 04/15/17 12:31 04/15/17 14:54 Bedside Glucose 185 188 198 82 Test 04/15/17 15:30 04/15/17 17:42 Bedside Glucose 151 261 H Medications Medications Current Medications Ondansetron HCl (Zofran Inj) 4 mg Q6H PRN IV NAUSEA AND/OR VOMITING; Start at 19:30 Acetaminophen (Tylenol Tab) 650 mg Q6H PRN PO PAIN LEVEL 1-3 OR FEVER; Start at 19:30 Acetaminophen/ Hydrocodone Bitart ([place] (5/325)) 1 tab Q6H PRN PO MODERATE PAIN LEVEL 4-6; Start 04/13/17 at 19:30 Morphine Sulfate (morphine) 2 mg Q4H PRN IV SEVERE PAIN LEVEL 7-10; Start 04/13 at 19:30 Docusate Sodium (Colace) 100 mg Q12H PRN PO CONSTIPATION; Start 04/13/17 at 19: 30 Zolpidem Tartrate (Ambien) 5 mg QHS PRN PO SLEEP; Start 04/13/17 at 19:30 Insulin Glargine (Lantus) 16 unit DAILY@08 SC ; Start 04/15/17 at 08:00 Diagnostic Test (Pha) (Accu-Chek) 1 ea 02 XX ; Start 04/15/17 at 02:00 Miscellaneous Information 1 ea NOTE XX ; Start 04/14/17 at 14:30 Glucose (Glutose) 15 gm Q15M PRN PO DECREASED GLUCOSE; Start 04/14/17 at 14:30 Glucose (Glutose) 22.5 gm Q15M PRN PO DECREASED GLUCOSE; Start 04/14/17 at 14: 30 Dextrose (D50w Syringe) 25 ml Q15M PRN IV DECREASED GLUCOSE; Start 04/14/17 at 14:30 Dextrose (D50w Syringe) 50 ml Q15M PRN IV DECREASED GLUCOSE; Start 04/14/17 at 14:30 Glucagon (Glucagen) 1 mg Q15M PRN IM DECREASED GLUCOSE; Start 04/14/17 at 14:30 Glucose (Glutose) 15 gm Q15M PRN BUCCAL DECREASED GLUCOSE; Start 04/14/17 at 14 :30 Isosorbide Dinitrate (Isordil) 10 mg TID PO Last administered on 04/15/17 13: 17; Admin Dose 10 MG; Start 04/14/17 at 21:00 Carvedilol (Coreg) 3.125 mg BID PO Last administered on 04/15/17 10:32; Admin Dose 3.125 MG; Start 04/14/17 at 21:00 Lisinopril (Zestril) 2.5 mg DAILY PO Last administered on 04/15/17 10:26; Admin Dose 2.5 MG; Start 04/15/17 at 09:00 Furosemide (Lasix) 20 mg DAILY PO Last administered on 04/15/17 10:25; Admin Dose 20 MG; Start 04/15/17 at 09:00 Miscellaneous Information (* Miscellaneous Pharmacy Order) HOLD all METFORMIN ... ONCE XX ; Start 04/14/17 at 18:30; Stop 04/16/17 at 18:29 Acetaminophen (Tylenol Tab) 650 mg Q4H PRN PO NON-CARDIAC PAIN LEVEL (1-3); Start 04/14/17 at 18:30 Morphine Sulfate (morphine) 2 mg Q2H PRN IV FOR NON CARDIAC PAIN (4-10); Start 04/14/17 at 18:30 Al Hydrox/Mg Hydrox/Simethicone (Mag-Al Plus) 30 ml Q4H PRN PO GASTROINTESTINAL UPSET; Start 04/14/17 at 18:30 Ondansetron HCl (Zofran Inj) 4 mg Q4H PRN IV NAUSEA AND/OR VOMITING; Start at 18:30 CHRISS HAYES Apr 15, 2017 18:53
--- NOTE | 2017-04-15 20:17 | RADRPT ---
Vent Rate: 72 bpm RR Interval: 0 msec WI Interval: 162 msec QRS Duration: 114 msec QT Interval: 408 msec QTC Interval: 446 msec P-R-T Circle: 38 - 60 - 84 degrees Normal sinus rhythm LBBB Possible Left atrial enlargement Anterior infarct , age undetermined Abnormal ECG Electronically Signed By: Satinder Cho [id number]
[2017-04-16] VITALS (11 sets, daily range): BP systolic 100–115; BP diastolic 56–71; PULSE 69–86; RESP 20
[2017-04-16] MEDS: ACCU-CHEK XX SCH (02:00)
[2017-04-16 07:54] LABS: CALCIUM 9.3 mg/dl (8.4-10.2); CREATININE 0.87 mg/dl (0.61-1.24); MAGNESIUM 1.6 mg/dl (1.7-2.5); POTASSIUM 4.4 mmol/L (3.5-5.1)
[2017-04-16] MEDS: Insulin NOVOLOG SS MILD Algorithm (SS with meals and bedtime) SC SCH ×2 (08:19→12:15)
[2017-04-16] MEDS: INSULIN ASPART [NOVOLOG] 3 ML PEN SC SCH ×5 (08:20→20:48)
[2017-04-16] MEDS: INSULIN GLARGINE [LANtus] 3 ML PEN SC SCH (08:21)
[2017-04-16] MEDS: FUROSEMIDE 20 MG TAB PO SCH (08:23)
[2017-04-16] MEDS: LISINOPRIL 5 MG TAB PO SCH (08:24)
[2017-04-16] MEDS: ISOSORBIDE DINITRATE 20 MG TAB PO SCH ×3 (08:24→21:01)
--- NOTE | 2017-04-16 12:27 | CONS ---
Date/Time of Note Date/Time of Note DATE: 04/16/17 TIME: 12:03 Assessment/Plan Assessment/Plan Chief Complaint/Hosp Course 56 yo male with hx of angina, has multivessel CAD by heart cath, EF 25% Problems: Additional Assessment/Plan Targets appear reasonable for bypass, but low EF increases the risks for bypass surgery. Dr. Pickens will review patient on Tuesday for possible myocardial revascularization Consultation Date/Type/Reason Admit Date/Time Apr 13, 2017 at 16:23 Date of Consultation: Apr 16, 2017 Reason for Consultation CAD with multivessel disease, consideration for surgery Hx of Present Illness Cross-cover for Dr. Pickens. 56 yo male with hx of angina, admitted with exacerbation via ER of same. [place] r/ o by ECG and enzymes, stabilized and admitted for further workup. No further CP since admission. Heart cath 04/15/17: LVEDP 31, EF 25% (Echo), LMCA Clear, LAD Occluded at midpoint, DIAG1 clear, RAMUS Moderate stenosis, CX 40%, OM1 90%, RCA 95% Mid, PDA 90% Fills distal LAD retrograde Constitutional: no complaints Eyes: no complaints ENT: no complaints Respiratory: no complaints Cardiovascular: chest pain (Known cardiac condition, was scheduled for outpatient heart cath) Gastrointestinal: no complaints Genitourinary: no complaints Musculoskeletal: no complaints Skin: no complaints Neurologic: no complaints Lymphatic: no complaints Psychological: no complaints Past Medical History Medical History: hypertension Social History Alcohol Use: rarely Smoking Status: Former smoker Drug Use: none Exam/Review of Systems Vital Signs Vitals Vital Signs Date Time Temp Pulse Resp B/P Pulse Ox O2 Delivery O2 Flow Rate FiO2 04/16/17 11:04 97.8 73 20 108/61 98 04/14/17 20:03 Room Air Intake and Output 04/15/17 04/15/17 04/16/17 15:00 23:00 07:00 Intake Total 700 ml 600 ml Balance 700 ml 600 ml Exam Constitutional: alert, oriented, well developed Psych: nl mood/affect, no complaints Head: atraumatic, normocephalic Eyes: EOMI, PERRL, nl conjunctiva, nl lids, nl sclera ENMT: nl external ears & nose, nl lips & teeth, nl nasal mucosa & septum Neck: non-tender, supple, No bruits Respiratory: clear to auscultation, normal air movement Cardiovascular: nl pulses, regular rate and rhythm Gastrointestinal: nl liver, spleen, non-tender, soft Musculoskeletal: nl extremities to inspection, nl gait and stance Extremities: normal pulses Neurological: [employer] II-XII intact, nl mental status, nl speech, nl strength Skin: nl turgor, No rash or lesions Results Result Diagram: 04/14/17 0559 04/16/17 0622 Results 24 hrs Laboratory Tests Test 04/15/17 12:31 04/15/17 14:54 04/15/17 15:30 04/15/17 17:42 Bedside Glucose 198 82 151 261 H Test 04/15/17 20:10 04/16/17 04:25 04/16/17 06:22 04/16/17 08:17 Bedside Glucose 132 221 H 242 H Sodium Level 138 Potassium Level 4.4 Chloride Level 106 Carbon Dioxide Level 26 Anion Gap 10 Blood Urea Nitrogen 22 H Creatinine 0.87 Glucose Level 242 H Calcium Level 9.3 Magnesium Level 1.6 L Medications Medications Current Medications Ondansetron HCl (Zofran Inj) 4 mg Q6H PRN IV NAUSEA AND/OR VOMITING; Start at 19:30 Acetaminophen (Tylenol Tab) 650 mg Q6H PRN PO PAIN LEVEL 1-3 OR FEVER; Start at 19:30 Acetaminophen/ Hydrocodone Bitart ([place] (5/325)) 1 tab Q6H PRN PO MODERATE PAIN LEVEL 4-6; Start 04/13/17 at 19:30 Morphine Sulfate (morphine) 2 mg Q4H PRN IV SEVERE PAIN LEVEL 7-10; Start 04/13 at 19:30 Docusate Sodium (Colace) 100 mg Q12H PRN PO CONSTIPATION; Start 04/13/17 at 19: 30 Zolpidem Tartrate (Ambien) 5 mg QHS PRN PO SLEEP; Start 04/13/17 at 19:30 Insulin Glargine (Lantus) 16 unit DAILY@08 SC Last administered on 04/16/17t 08 :21; Admin Dose 16 UNIT; Start 04/15/17 at 08:00 Diagnostic Test (Pha) (Accu-Chek) 1 ea 02 XX ; Start 04/15/17 at 02:00 Miscellaneous Information 1 ea NOTE XX ; Start 04/14/17 at 14:30 Glucose (Glutose) 15 gm Q15M PRN PO DECREASED GLUCOSE; Start 04/14/17 at 14:30 Glucose (Glutose) 22.5 gm Q15M PRN PO DECREASED GLUCOSE; Start 04/14/17 at 14: 30 Dextrose (D50w Syringe) 25 ml Q15M PRN IV DECREASED GLUCOSE; Start 04/14/17 at 14:30 Dextrose (D50w Syringe) 50 ml Q15M PRN IV DECREASED GLUCOSE; Start 04/14/17 at 14:30 Glucagon (Glucagen) 1 mg Q15M PRN IM DECREASED GLUCOSE; Start 04/14/17 at 14:30 Glucose (Glutose) 15 gm Q15M PRN BUCCAL DECREASED GLUCOSE; Start 04/14/17 at 14 :30 Isosorbide Dinitrate (Isordil) 10 mg TID PO Last administered on 04/16/17 08: 24; Admin Dose 10 MG; Start 04/14/17 at 21:00 Carvedilol (Coreg) 3.125 mg BID PO Last administered on 04/16/17 08:23; Admin Dose 3.125 MG; Start 04/14/17 at 21:00 Lisinopril (Zestril) 2.5 mg DAILY PO Last administered on 04/16/17 08:24; Admin Dose 2.5 MG; Start 04/15/17 at 09:00 Furosemide (Lasix) 20 mg DAILY PO Last administered on 04/16/17 08:23; Admin Dose 20 MG; Start 04/15/17 at 09:00 Miscellaneous Information (* Miscellaneous Pharmacy Order) HOLD all METFORMIN ... ONCE XX ; Start 04/14/17 at 18:30; Stop 04/16/17 at 18:29 Acetaminophen (Tylenol Tab) 650 mg Q4H PRN PO NON-CARDIAC PAIN LEVEL (1-3); Start 04/14/17 at 18:30 Morphine Sulfate (morphine) 2 mg Q2H PRN IV FOR NON CARDIAC PAIN (4-10); Start 04/14/17 at 18:30 Al Hydrox/Mg Hydrox/Simethicone (Mag-Al Plus) 30 ml Q4H PRN PO GASTROINTESTINAL UPSET; Start 04/14/17 at 18:30 Ondansetron HCl (Zofran Inj) 4 mg Q4H PRN IV NAUSEA AND/OR VOMITING; Start at 18:30 Copies To: CC: NOEL PICKENS MD, RAMSAY C MD Apr 16, 2017 12:13
--- NOTE | 2017-04-16 14:00 | CONS ---
Date/Time of Note Date/Time of Note DATE: 04/16/17 TIME: 13:59 Assessment/Plan Assessment/Plan Additional Assessment/Plan 1. Chest pain. Assess for acute coronary syndrome.-negative trop x 3. Now s/ p LHC with severe multivessel obstructive cad - s/p LHC - severe Dz - surgical eval pending. Dr. Gimenez will see Tuesday. 2. Hypertension-borderline hotn - better now. BETTER. 3. Abnormal electrocardiogram. Assess for acute cardiac syndrome. 4. History of abnormal cardiac stress test on outpatient - now Severe dz. 5. Dyslipidemia. 6. History of myocardial infarction 7. Dementia by medications. 8. Diabetes mellitus with uncontrolled blood sugars - con't to keep euglycemic. 9. Mild anemia. Consultation Date/Type/Reason Admit Date/Time Apr 13, 2017 at 16:23 Type of Consultation: cardiology Referring Provider: CHRISS HAYES 24 HR Interval Summary Free Text/Dictation No acute events - vascular eval in progress for likely CABG. ROS: No fever, no chills, no nausea, no vomiting, no diarrhea/constipation No recent weight changes No chest pain, no PND, no orthopnea No dizziness, blurred vision No thirst, no heat or cold intolerance Exam/Review of Systems Vital Signs Vitals Vital Signs Date Time Temp Pulse Resp B/P Pulse Ox O2 Delivery O2 Flow Rate FiO2 04/16/17 12:03 82 04/16/17 11:04 97.8 20 108/61 98 04/14/17 20:03 Room Air Intake and Output 04/15/17 04/15/17 04/16/17 15:00 23:00 07:00 Intake Total 700 ml 600 ml Balance 700 ml 600 ml Exam General: WN/WD/NAD, AOx 3 HEENT: Unicetric/atraumatic/EOMI (follow commands) NECK: JVD elevated, no thyromegaly Lymph: no lymphadenopathy HEART: regular with no S3, II/ systolic murmur at apex, PMI L LUNGS: Coarse sounds ABD: soft, NT, ND, +BS : Intact Neuro: non focal SKIN: chronic changes EXT: trace edema Results Result Diagram: 04/14/17 0559 04/16/17 0622 Results 24 hrs Laboratory Tests Test 04/15/17 14:54 04/15/17 15:30 04/15/17 17:42 04/15/17 20:10 Bedside Glucose 82 151 261 H 132 Test 04/16/17 04:25 04/16/17 06:22 04/16/17 08:17 04/16/17 12:12 Bedside Glucose 221 H 242 H 250 H Sodium Level 138 Potassium Level 4.4 Chloride Level 106 Carbon Dioxide Level 26 Anion Gap 10 Blood Urea Nitrogen 22 H Creatinine 0.87 Glucose Level 242 H Calcium Level 9.3 Magnesium Level 1.6 L Medications Medications Current Medications Ondansetron HCl (Zofran Inj) 4 mg Q6H PRN IV NAUSEA AND/OR VOMITING; Start at 19:30 Acetaminophen (Tylenol Tab) 650 mg Q6H PRN PO PAIN LEVEL 1-3 OR FEVER; Start at 19:30 Acetaminophen/ Hydrocodone Bitart ([place] (5/325)) 1 tab Q6H PRN PO MODERATE PAIN LEVEL 4-6; Start 04/13/17 at 19:30 Morphine Sulfate (morphine) 2 mg Q4H PRN IV SEVERE PAIN LEVEL 7-10; Start 04/13 at 19:30 Docusate Sodium (Colace) 100 mg Q12H PRN PO CONSTIPATION; Start 04/13/17 at 19: 30 Zolpidem Tartrate (Ambien) 5 mg QHS PRN PO SLEEP; Start 04/13/17 at 19:30 Insulin Glargine (Lantus) 16 unit DAILY@08 SC Last administered on 04/16/17t 08 :21; Admin Dose 16 UNIT; Start 04/15/17 at 08:00 Miscellaneous Information 1 ea NOTE XX ; Start 04/14/17 at 14:30 Glucose (Glutose) 15 gm Q15M PRN PO DECREASED GLUCOSE; Start 04/14/17 at 14:30 Glucose (Glutose) 22.5 gm Q15M PRN PO DECREASED GLUCOSE; Start 04/14/17 at 14: 30 Dextrose (D50w Syringe) 25 ml Q15M PRN IV DECREASED GLUCOSE; Start 04/14/17 at 14:30 Dextrose (D50w Syringe) 50 ml Q15M PRN IV DECREASED GLUCOSE; Start 04/14/17 at 14:30 Glucagon (Glucagen) 1 mg Q15M PRN IM DECREASED GLUCOSE; Start 9/14/17 at 14:30 Glucose (Glutose) 15 gm Q15M PRN BUCCAL DECREASED GLUCOSE; Start 04/14/17 at 14 :30 Isosorbide Dinitrate (Isordil) 10 mg TID PO Last administered on 04/16/17 12: 17; Admin Dose 10 MG; Start 04/14/17 at 21:00 Carvedilol (Coreg) 3.125 mg BID PO Last administered on 04/16/17 08:23; Admin Dose 3.125 MG; Start 04/14/17 at 21:00 Lisinopril (Zestril) 2.5 mg DAILY PO Last administered on 04/16/17 08:24; Admin Dose 2.5 MG; Start 04/15/17 at 09:00 Furosemide (Lasix) 20 mg DAILY PO Last administered on 04/16/17 08:23; Admin Dose 20 MG; Start 04/15/17 at 09:00 Miscellaneous Information (* Miscellaneous Pharmacy Order) HOLD all METFORMIN ... ONCE XX ; Start 04/14/17 at 18:30; Stop 04/16/17 at 18:29 Acetaminophen (Tylenol Tab) 650 mg Q4H PRN PO NON-CARDIAC PAIN LEVEL (1-3); Start 04/14/17 at 18:30 Morphine Sulfate (morphine) 2 mg Q2H PRN IV FOR NON CARDIAC PAIN (4-10); Start 04/14/17 at 18:30 Al Hydrox/Mg Hydrox/Simethicone (Mag-Al Plus) 30 ml Q4H PRN PO GASTROINTESTINAL UPSET; Start 04/14/17 at 18:30 Ondansetron HCl (Zofran Inj) 4 mg Q4H PRN IV NAUSEA AND/OR VOMITING; Start at 18:30 Diagnostic Test (Pha) (Accu-Chek) 1 ea 02 XX ; Start 04/17/17 at 02:00 Diagnostic Test (Pha) (Accu-Chek) 1 ea 02 XX ; Start 04/17/17 at 02:00 BUCK BEYER MD Apr 16, 2017 14:00
--- NOTE | 2017-04-16 14:12 | PN ---
Date/Time of Note Date/Time of Note DATE: 04/16/17 TIME: 14:09 Assessment/Plan VTE Prophylaxis VTE Prophylaxis Intervention: SCD's Lines/Catheters IV Catheter Type (from Nrsg): Peripheral IV Urinary Cath still in place: No Assessment/Plan Chief Complaint/Hosp Course 1. Chest pain Heart cath showed multivessel disease, surgical eval is pending Continue cardiac meds 2. Diabetes with an A1c of 9.0-sugars elevated Increase basal and mealtime insulin doses, continue sliding-scale but have increased to moderate heat treater head consultation 3. Hypertension-stable cont meds Prophylaxis:SCDs Problems: Subjective 24 Hr Interval Summary Constitutional: no complaints Exam/Review of Systems Vital Signs Vitals Vital Signs Date Time Temp Pulse Resp B/P Pulse Ox O2 Delivery O2 Flow Rate FiO2 04/16/17 12:03 82 04/16/17 11:04 97.8 20 108/61 98 04/14/17 20:03 Room Air Intake and Output 04/15/17 04/15/17 04/16/17 15:00 23:00 07:00 Intake Total 700 ml 600 ml Balance 700 ml 600 ml Exam Constitutional: alert, oriented Respiratory: clear to auscultation Cardiovascular: regular rate and rhythm Gastrointestinal: soft, No distended Musculoskeletal: nl extremities to inspection Results Result Diagram: 04/14/17 0559 04/16/17 0622 Results 24 hrs Laboratory Tests Test 04/15/17 14:54 04/15/17 15:30 04/15/17 17:42 04/15/17 20:10 Bedside Glucose 82 151 261 H 132 Test 04/16/17 04:25 04/16/17 06:22 04/16/17 08:17 04/16/17 12:12 Bedside Glucose 221 H 242 H 250 H Sodium Level 138 Potassium Level 4.4 Chloride Level 106 Carbon Dioxide Level 26 Anion Gap 10 Blood Urea Nitrogen 22 H Creatinine 0.87 Glucose Level 242 H Calcium Level 9.3 Magnesium Level 1.6 L Medications Medications Current Medications Ondansetron HCl (Zofran Inj) 4 mg Q6H PRN IV NAUSEA AND/OR VOMITING; Start at 19:30 Acetaminophen (Tylenol Tab) 650 mg Q6H PRN PO PAIN LEVEL 1-3 OR FEVER; Start at 19:30 Acetaminophen/ Hydrocodone Bitart ([place] (5/325)) 1 tab Q6H PRN PO MODERATE PAIN LEVEL 4-6; Start 04/13/17 at 19:30 Morphine Sulfate (morphine) 2 mg Q4H PRN IV SEVERE PAIN LEVEL 7-10; Start 04/13 at 19:30 Docusate Sodium (Colace) 100 mg Q12H PRN PO CONSTIPATION; Start 04/13/17 at 19: 30 Zolpidem Tartrate (Ambien) 5 mg QHS PRN PO SLEEP; Start 04/13/17 at 19:30 Insulin Glargine (Lantus) 16 unit DAILY@08 SC Last administered on 04/16/17 08 :21; Admin Dose 16 UNIT; Start 04/15/17 at 08:00 Miscellaneous Information 1 ea NOTE XX ; Start 04/14/17 at 14:30 Glucose (Glutose) 15 gm Q15M PRN PO DECREASED GLUCOSE; Start 04/14/17 at 14:30 Glucose (Glutose) 22.5 gm Q15M PRN PO DECREASED GLUCOSE; Start 04/14/17 at 14: 30 Dextrose (D50w Syringe) 25 ml Q15M PRN IV DECREASED GLUCOSE; Start 04/14/17 at 14:30 Dextrose (D50w Syringe) 50 ml Q15M PRN IV DECREASED GLUCOSE; Start 04/14/17 at 14:30 Glucagon (Glucagen) 1 mg Q15M PRN IM DECREASED GLUCOSE; Start 04/14/17 at 14:30 Glucose (Glutose) 15 gm Q15M PRN BUCCAL DECREASED GLUCOSE; Start 04/14/17 at 14 :30 Isosorbide Dinitrate (Isordil) 10 mg TID PO Last administered on 04/16/17 12: 17; Admin Dose 10 MG; Start 04/14/17 at 21:00 Carvedilol (Coreg) 3.125 mg BID PO Last administered on 04/16/17 08:23; Admin Dose 3.125 MG; Start 04/14/17 at 21:00 Lisinopril (Zestril) 2.5 mg DAILY PO Last administered on 04/16/17 08:24; Admin Dose 2.5 MG; Start 04/15/17 at 09:00 Furosemide (Lasix) 20 mg DAILY PO Last administered on 04/16/17 08:23; Admin Dose 20 MG; Start 04/15/17 at 09:00 Miscellaneous Information (* Miscellaneous Pharmacy Order) HOLD all METFORMIN ... ONCE XX ; Start 04/14/17 at 18:30; Stop 04/16/17 at 18:29 Acetaminophen (Tylenol Tab) 650 mg Q4H PRN PO NON-CARDIAC PAIN LEVEL (1-3); Start 04/14/17 at 18:30 Morphine Sulfate (morphine) 2 mg Q2H PRN IV FOR NON CARDIAC PAIN (4-10); Start 04/14/17 at 18:30 Al Hydrox/Mg Hydrox/Simethicone (Mag-Al Plus) 30 ml Q4H PRN PO GASTROINTESTINAL UPSET; Start 04/14/17 at 18:30 Ondansetron HCl (Zofran Inj) 4 mg Q4H PRN IV NAUSEA AND/OR VOMITING; Start at 18:30 Diagnostic Test (Pha) (Accu-Chek) 1 ea 02 XX ; Start 04/17/17 at 02:00 Diagnostic Test (Pha) (Accu-Chek) 1 ea 02 XX ; Start 04/17/17 at 02:00 CHRISS HAYES Apr 16, 2017 14:12
[2017-04-16] MEDS ORDERED: MAGNESIUM SULFATE 2 GM/50 ML 50 ML IVPB ONE (14:30)
[2017-04-17] VITALS (13 sets, daily range): BP systolic 94–120; BP diastolic 53–78; PULSE 64–74; RESP 16–20
[2017-04-17] MEDS: ACCU-CHEK XX SCH ×2 (02:00→02:33)
[2017-04-17 07:07] LABS: CALCIUM 9.2 mg/dl (8.4-10.2); CREATININE 0.86 mg/dl (0.61-1.24); MAGNESIUM 1.9 mg/dl (1.7-2.5); POTASSIUM 4.4 mmol/L (3.5-5.1)
[2017-04-17] MEDS: INSULIN ASPART [NOVOLOG] 3 ML PEN SC SCH ×7 (07:56→20:24)
[2017-04-17] MEDS: INSULIN GLARGINE [LANtus] 3 ML PEN SC SCH (07:58)
[2017-04-17] MEDS: FUROSEMIDE 20 MG TAB PO SCH (08:13)
[2017-04-17] MEDS: LISINOPRIL 5 MG TAB PO SCH (08:14)
[2017-04-17] MEDS: ISOSORBIDE DINITRATE 20 MG TAB PO SCH ×3 (08:14→20:32)
--- NOTE | 2017-04-17 12:30 | CONS ---
Date/Time of Note Date/Time of Note DATE: 04/17/17 TIME: 12:29 Assessment/Plan Assessment/Plan Additional Assessment/Plan 1. CAD - severe multivessel obstructive cad - s/p LHC - severe Dz - surgical eval pending. Dr. Gimenez will see Tuesday. 2. Hypertension-borderline hotn - better now. BETTER. 3. Abnormal electrocardiogram. Assess for acute cardiac syndrome. 4. History of abnormal cardiac stress test on outpatient - now Severe dz. 5. Dyslipidemia. 6. History of myocardial infarction 7. Dementia by medications. 8. Diabetes mellitus with uncontrolled blood sugars - con't to keep euglycemic. 9. Mild anemia. Consultation Date/Type/Reason Admit Date/Time Apr 13, 2017 at 16:23 Type of Consultation: cardiology Referring Provider: CHRISS HAYES 24 HR Interval Summary Free Text/Dictation severe multivessel obstructive cad - s/p LHC - severe Dz - surgical eval pending ROS: No fever, no chills, no nausea, no vomiting, no diarrhea/constipation No recent weight changes No chest pain, no PND, no orthopnea No dizziness, blurred vision No thirst, no heat or cold intolerance Exam/Review of Systems Vital Signs Vitals Vital Signs Date Time Temp Pulse Resp B/P Pulse Ox O2 Delivery O2 Flow Rate FiO2 04/17/17 11:25 97.3 66 16 100/59 94 04/14/17 20:03 Room Air Intake and Output 04/16/17 04/16/17 04/17/17 15:00 23:00 07:00 Intake Total 1050 ml 250 ml Balance 1050 ml 250 ml Exam General: WN/WD/NAD, AOx 3 HEENT: Unicetric/atraumatic/EOMI (follow commands) NECK: JVD elevated, no thyromegaly Lymph: no lymphadenopathy HEART: regular with no S3, II/ systolic murmur at apex LUNGS: Coarse sounds ABD: soft, NT, ND, +BS : Intact Neuro: non focal SKIN: chronic changes EXT: trace edema Results Result Diagram: 04/14/17 0559 04/17/17 0614 Results 24 hrs Laboratory Tests Test 04/16/17 17:53 04/16/17 20:45 04/17/17 02:25 04/17/17 06:14 Bedside Glucose 124 110 163 Sodium Level 135 Potassium Level 4.4 Chloride Level 104 Carbon Dioxide Level 26 Anion Gap 9 Blood Urea Nitrogen 20 Creatinine 0.86 Glucose Level 187 Calcium Level 9.2 Magnesium Level 1.9 Test 04/17/17 07:54 04/17/17 11:37 Bedside Glucose 202 88 Medications Medications Current Medications Ondansetron HCl (Zofran Inj) 4 mg Q6H PRN IV NAUSEA AND/OR VOMITING Last administered on 04/17/17 02:32; Admin Dose 4 MG; Start 04/13/17 at 19:30 Acetaminophen (Tylenol Tab) 650 mg Q6H PRN PO PAIN LEVEL 1-3 OR FEVER; Start at 19:30 Acetaminophen/ Hydrocodone Bitart ([place] (5/325)) 1 tab Q6H PRN PO MODERATE PAIN LEVEL 4-6; Start 04/13/17 at 19:30 Morphine Sulfate (morphine) 2 mg Q4H PRN IV SEVERE PAIN LEVEL 7-10 Last administered on 04/17/17 02:32; Admin Dose 2 MG; Start 04/13/17 at 19:30 Docusate Sodium (Colace) 100 mg Q12H PRN PO CONSTIPATION; Start 04/13/17 at 19: 30 Zolpidem Tartrate (Ambien) 5 mg QHS PRN PO SLEEP; Start 04/13/17 at 19:30 Miscellaneous Information 1 ea NOTE XX ; Start 04/14/17 at 14:30 Glucose (Glutose) 15 gm Q15M PRN PO DECREASED GLUCOSE; Start 04/14/17 at 14:30 Glucose (Glutose) 22.5 gm Q15M PRN PO DECREASED GLUCOSE; Start 04/14/17 at 14: 30 Dextrose (D50w Syringe) 25 ml Q15M PRN IV DECREASED GLUCOSE; Start 04/14/17 at 14:30 Dextrose (D50w Syringe) 50 ml Q15M PRN IV DECREASED GLUCOSE; Start 04/14/17 at 14:30 Glucagon (Glucagen) 1 mg Q15M PRN IM DECREASED GLUCOSE; Start 04/14/17 at 14:30 Glucose (Glutose) 15 gm Q15M PRN BUCCAL DECREASED GLUCOSE; Start 04/14/17 at 14 :30 Isosorbide Dinitrate (Isordil) 10 mg TID PO Last administered on 04/17/17 08: 14; Admin Dose 10 MG; Start 04/14/17 at 21:00 Carvedilol (Coreg) 3.125 mg BID PO Last administered on 04/17/17 08:14; Admin Dose 3.125 MG; Start 04/14/17 at 21:00 Lisinopril (Zestril) 2.5 mg DAILY PO Last administered on 04/17/17 08:14; Admin Dose 2.5 MG; Start 04/15/17 at 09:00 Furosemide (Lasix) 20 mg DAILY PO Last administered on 04/17/17 08:13; Admin Dose 20 MG; Start 04/15/17 at 09:00 Acetaminophen (Tylenol Tab) 650 mg Q4H PRN PO NON-CARDIAC PAIN LEVEL (1-3); Start 04/14/17 at 18:30 Morphine Sulfate (morphine) 2 mg Q2H PRN IV FOR NON CARDIAC PAIN (4-10); Start 04/14/17 at 18:30 Al Hydrox/Mg Hydrox/Simethicone (Mag-Al Plus) 30 ml Q4H PRN PO GASTROINTESTINAL UPSET; Start 04/14/17 at 18:30 Ondansetron HCl (Zofran Inj) 4 mg Q4H PRN IV NAUSEA AND/OR VOMITING; Start at 18:30 Diagnostic Test (Pha) (Accu-Chek) 1 ea 02 XX Last administered on 04/17/17 02: 33; Admin Dose 1 EA; Start 04/17/17 at 02:00 Diagnostic Test (Pha) (Accu-Chek) 1 ea 02 XX ; Start 04/17/17 at 02:00 Insulin Glargine (Lantus) 22 unit DAILY@08 SC Last administered on 04/17/17 07 :58; Admin Dose 22 UNIT; Start 04/17/17 at 08:00 BUCK BEYER MD Apr 17, 2017 12:30
--- NOTE | 2017-04-17 19:06 | PN ---
Date/Time of Note Date/Time of Note DATE: 04/17/17 TIME: 19:04 Assessment/Plan VTE Prophylaxis VTE Prophylaxis Intervention: SCD's Lines/Catheters IV Catheter Type (from Nrsg): [place] Urinary Cath still in place: No Assessment/Plan Chief Complaint/Hosp Course 1. Chest pain Heart cath showed multivessel disease, surgical eval appreciated, CABG this coming week Continue cardiac meds 2. Diabetes with an A1c of 9.0-sugars stable Continue basal and mealtime insulin doses, continue sliding-scale but have increased to moderate nutrition educator consultation 3. Hypertension-stable cont meds Prophylaxis:SCDs Problems: Subjective 24 Hr Interval Summary Constitutional: no complaints Exam/Review of Systems Vital Signs Vitals Vital Signs Date Time Temp Pulse Resp B/P Pulse Ox O2 Delivery O2 Flow Rate FiO2 04/17/17 16:43 71 04/17/17 15:32 98.2 18 114/64 94 04/14/17 20:03 Room Air Intake and Output 04/16/17 04/16/17 04/17/17 15:00 23:00 07:00 Intake Total 1050 ml 250 ml Balance 1050 ml 250 ml Exam Constitutional: alert, oriented Respiratory: clear to auscultation Cardiovascular: regular rate and rhythm Gastrointestinal: soft, No distended Musculoskeletal: nl extremities to inspection Results Result Diagram: 04/14/17 0559 04/17/17 0614 Results 24 hrs Laboratory Tests Test 04/16/17 20:45 04/17/17 02:25 04/17/17 06:14 04/17/17 07:54 Bedside Glucose 110 163 202 Sodium Level 135 Potassium Level 4.4 Chloride Level 104 Carbon Dioxide Level 26 Anion Gap 9 Blood Urea Nitrogen 20 Creatinine 0.86 Glucose Level 187 Calcium Level 9.2 Magnesium Level 1.9 Test 04/17/17 11:37 04/17/17 13:01 04/17/17 17:06 Bedside Glucose 88 122 148 Medications Medications Current Medications Ondansetron HCl (Zofran Inj) 4 mg Q6H PRN IV NAUSEA AND/OR VOMITING Last administered on 04/17/17t 02:32; Admin Dose 4 MG; Start 04/13/17 at 19:30 Acetaminophen (Tylenol Tab) 650 mg Q6H PRN PO PAIN LEVEL 1-3 OR FEVER; Start at 19:30 Acetaminophen/ Hydrocodone Bitart ([place] (5/325)) 1 tab Q6H PRN PO MODERATE PAIN LEVEL 4-6; Start 04/13/17 at 19:30 Morphine Sulfate (morphine) 2 mg Q4H PRN IV SEVERE PAIN LEVEL 7-10 Last administered on 04/17/17 02:32; Admin Dose 2 MG; Start 04/13/17 at 19:30 Docusate Sodium (Colace) 100 mg Q12H PRN PO CONSTIPATION; Start 04/13/17 at 19: 30 Zolpidem Tartrate (Ambien) 5 mg QHS PRN PO SLEEP; Start 04/13/17 at 19:30 Miscellaneous Information 1 ea NOTE XX ; Start 04/14/17 at 14:30 Glucose (Glutose) 15 gm Q15M PRN PO DECREASED GLUCOSE; Start 04/14/17 at 14:30 Glucose (Glutose) 22.5 gm Q15M PRN PO DECREASED GLUCOSE; Start 04/14/17 at 14: 30 Dextrose (D50w Syringe) 25 ml Q15M PRN IV DECREASED GLUCOSE; Start 04/14/17 at 14:30 Dextrose (D50w Syringe) 50 ml Q15M PRN IV DECREASED GLUCOSE; Start 04/14/17 at 14:30 Glucagon (Glucagen) 1 mg Q15M PRN IM DECREASED GLUCOSE; Start 04/14/17 at 14:30 Glucose (Glutose) 15 gm Q15M PRN BUCCAL DECREASED GLUCOSE; Start 04/14/17 at 14 :30 Isosorbide Dinitrate (Isordil) 10 mg TID PO Last administered on 04/17/17 08: 14; Admin Dose 10 MG; Start 04/14/17 at 21:00 Carvedilol (Coreg) 3.125 mg BID PO Last administered on 04/17/17 08:14; Admin Dose 3.125 MG; Start 04/14/17 at 21:00 Lisinopril (Zestril) 2.5 mg DAILY PO Last administered on 04/17/17 08:14; Admin Dose 2.5 MG; Start 04/15/17 at 09:00 Furosemide (Lasix) 20 mg DAILY PO Last administered on 04/17/17 08:13; Admin Dose 20 MG; Start 04/15/17 at 09:00 Acetaminophen (Tylenol Tab) 650 mg Q4H PRN PO NON-CARDIAC PAIN LEVEL (1-3); Start 04/14/17 at 18:30 Morphine Sulfate (morphine) 2 mg Q2H PRN IV FOR NON CARDIAC PAIN (4-10); Start 04/14/17 at 18:30 Al Hydrox/Mg Hydrox/Simethicone (Mag-Al Plus) 30 ml Q4H PRN PO GASTROINTESTINAL UPSET; Start 04/14/17 at 18:30 Ondansetron HCl (Zofran Inj) 4 mg Q4H PRN IV NAUSEA AND/OR VOMITING; Start at 18:30 Diagnostic Test (Pha) (Accu-Chek) 1 ea 02 XX Last administered on 04/17/17 02: 33; Admin Dose 1 EA; Start 04/17/17 at 02:00 Diagnostic Test (Pha) (Accu-Chek) 1 ea 02 XX ; Start 04/17/17 at 02:00 Insulin Glargine (Lantus) 22 unit DAILY@08 SC Last administered on 04/17/17 07 :58; Admin Dose 22 UNIT; Start 04/17/17 at 08:00 CHRISS HAYES Apr 17, 2017 19:06
[2017-04-18] VITALS (13 sets, daily range): BP systolic 101–124; BP diastolic 61–71; PULSE 64–156; RESP 18–19
[2017-04-18] MEDS: ACCU-CHEK XX SCH ×2 (02:00→02:33)
[2017-04-18] MEDS: INSULIN ASPART [NOVOLOG] 3 ML PEN SC SCH ×7 (08:07→21:00)
[2017-04-18] MEDS: INSULIN GLARGINE [LANtus] 3 ML PEN SC SCH (08:07)
--- NOTE | 2017-04-18 08:40 | CONS ---
Date/Time of Note Date/Time of Note DATE: 04/18/17 TIME: 08:39 Assessment/Plan Assessment/Plan Additional Assessment/Plan 1. CAD - severe multivessel obstructive cad - s/p LHC - severe Dz - surgical eval pending. Dr. Ammy carvajal, not in CHF by exam. 2. Hypertension-borderline hotn - better now. BETTER. 3. Abnormal electrocardiogram. Assess for acute cardiac syndrome. 4. History of abnormal cardiac stress test on outpatient - now Severe dz. 5. Dyslipidemia. 6. History of myocardial infarction 7. Dementia by medications. 8. Diabetes mellitus with uncontrolled blood sugars - con't to keep euglycemic. 9. Mild anemia. Consultation Date/Type/Reason Admit Date/Time Apr 13, 2017 at 16:23 Type of Consultation: cardiology Referring Provider: CHRISS HAYES 24 HR Interval Summary Free Text/Dictation surgical eval pending. Dr. Ammy carvajal, not in CHF by exam. ROS: No fever, no chills, no nausea, no vomiting, no diarrhea/constipation No recent weight changes No chest pain, no PND, no orthopnea No dizziness, blurred vision No thirst, no heat or cold intolerance Exam/Review of Systems Vital Signs Vitals Vital Signs Date Time Temp Pulse Resp B/P Pulse Ox O2 Delivery O2 Flow Rate FiO2 04/18/17 08:15 70 04/18/17 07:44 98.1 19 110/68 99 04/17/17 19:37 Room Air Intake and Output 04/17/17 04/17/17 04/18/17 15:00 23:00 07:00 Intake Total 250 ml Balance 250 ml Exam General: WN/WD/NAD, AOx 3 HEENT: Unicetric/atraumatic/EOMI (follow commands) NECK: JVD elevated, no thyromegaly Lymph: no lymphadenopathy HEART: regular with no S3, II/ systolic murmur at apex LUNGS: Coarse sounds ABD: soft, NT, ND, +BS : Intact Neuro: non focal SKIN: chronic changes EXT: trace edema Results Result Diagram: 04/14/17 0559 04/17/17 0614 Results 24 hrs Laboratory Tests Test 04/17/17 11:37 04/17/17 13:01 04/17/17 17:06 04/17/17 19:44 Bedside Glucose 88 122 148 57 L Test 04/17/17 20:13 04/18/17 02:31 04/18/17 08:04 Bedside Glucose 104 194 188 Medications Medications Current Medications Ondansetron HCl (Zofran Inj) 4 mg Q6H PRN IV NAUSEA AND/OR VOMITING Last administered on 04/17/17 02:32; Admin Dose 4 MG; Start 04/13/17 at 19:30 Acetaminophen (Tylenol Tab) 650 mg Q6H PRN PO PAIN LEVEL 1-3 OR FEVER; Start at 19:30 Acetaminophen/ Hydrocodone Bitart ([place] (5/325)) 1 tab Q6H PRN PO MODERATE PAIN LEVEL 4-6; Start 04/13/17 at 19:30 Morphine Sulfate (morphine) 2 mg Q4H PRN IV SEVERE PAIN LEVEL 7-10 Last administered on 04/17/17 02:32; Admin Dose 2 MG; Start 04/13/17 at 19:30 Docusate Sodium (Colace) 100 mg Q12H PRN PO CONSTIPATION; Start 04/13/17 at 19: 30 Zolpidem Tartrate (Ambien) 5 mg QHS PRN PO SLEEP; Start 04/13/17 at 19:30 Miscellaneous Information 1 ea NOTE XX ; Start 04/14/17 at 14:30 Glucose (Glutose) 15 gm Q15M PRN PO DECREASED GLUCOSE; Start 04/14/17 at 14:30 Glucose (Glutose) 22.5 gm Q15M PRN PO DECREASED GLUCOSE; Start 04/14/17 at 14: 30 Dextrose (D50w Syringe) 25 ml Q15M PRN IV DECREASED GLUCOSE; Start 04/14/17 at 14:30 Dextrose (D50w Syringe) 50 ml Q15M PRN IV DECREASED GLUCOSE; Start 04/14/17 at 14:30 Glucagon (Glucagen) 1 mg Q15M PRN IM DECREASED GLUCOSE; Start 04/14/17 at 14:30 Glucose (Glutose) 15 gm Q15M PRN BUCCAL DECREASED GLUCOSE; Start 04/14/17 at 14 :30 Isosorbide Dinitrate (Isordil) 10 mg TID PO Last administered on 04/17/17 20: 32; Admin Dose 10 MG; Start 04/14/17 at 21:00 Carvedilol (Coreg) 3.125 mg BID PO Last administered on 04/17/17 20:32; Admin Dose 3.125 MG; Start 04/14/17 at 21:00 Lisinopril (Zestril) 2.5 mg DAILY PO Last administered on 04/17/17 08:14; Admin Dose 2.5 MG; Start 04/15/17 at 09:00 Furosemide (Lasix) 20 mg DAILY PO Last administered on 04/17/17 08:13; Admin Dose 20 MG; Start 04/15/17 at 09:00 Acetaminophen (Tylenol Tab) 650 mg Q4H PRN PO NON-CARDIAC PAIN LEVEL (1-3); Start 04/14/17 at 18:30 Morphine Sulfate (morphine) 2 mg Q2H PRN IV FOR NON CARDIAC PAIN (4-10); Start 04/14/17 at 18:30 Al Hydrox/Mg Hydrox/Simethicone (Mag-Al Plus) 30 ml Q4H PRN PO GASTROINTESTINAL UPSET; Start 04/14/17 at 18:30 Ondansetron HCl (Zofran Inj) 4 mg Q4H PRN IV NAUSEA AND/OR VOMITING; Start at 18:30 Diagnostic Test (Pha) (Accu-Chek) 1 ea 02 XX Last administered on 04/18/17 02: 33; Admin Dose 1 EA; Start 04/17/17 at 02:00 Diagnostic Test (Pha) (Accu-Chek) 1 ea 02 XX ; Start 04/17/17 at 02:00 Insulin Glargine (Lantus) 22 unit DAILY@08 SC Last administered on 04/18/17 08 :07; Admin Dose 22 UNIT; Start 04/17/17 at 08:00 BUCK BEYER MD Apr 18, 2017 08:40
[2017-04-18] MEDS: FUROSEMIDE 20 MG TAB PO SCH (08:52)
[2017-04-18] MEDS: ISOSORBIDE DINITRATE 20 MG TAB PO SCH ×3 (08:52→21:00)
[2017-04-18] MEDS: LISINOPRIL 5 MG TAB PO SCH (11:45)
--- NOTE | 2017-04-18 17:36 | PN ---
Date/Time of Note Date/Time of Note DATE: 04/18/17 TIME: 17:33 Assessment/Plan VTE Prophylaxis VTE Prophylaxis Intervention: SCD's Lines/Catheters IV Catheter Type (from Nrsg): Saline Lock Urinary Cath still in place: No Assessment/Plan Assessment/Plan 56 yo M with hx of DM2 with suboptimal control, HTN admitted for chest pain, LHC showed multivessel disease. Pt slated for CABG in coming days. -CT surgery and cardiology following -cont insulin -cont BP meds, statin Subjective 24 Hr Interval Summary Free Text/Dictation No complaints, talking on the phone Exam/Review of Systems Vital Signs Vitals Vital Signs Date Time Temp Pulse Resp B/P Pulse Ox O2 Delivery O2 Flow Rate FiO2 04/18/17 16:24 71 04/18/17 15:27 98.0 19 110/65 100 04/17/17 19:37 Room Air Intake and Output 04/17/17 04/17/17 04/18/17 15:00 23:00 07:00 Intake Total 250 ml Balance 250 ml Exam nad no mrg lungs clear abd soft no rashes Results Result Diagram: 04/14/17 0559 04/17/17 0614 Results 24 hrs Laboratory Tests Test 04/17/17 19:44 04/17/17 20:13 04/18/17 02:31 04/18/17 08:04 Bedside Glucose 57 L 104 194 188 Test 04/18/17 11:41 04/18/17 17:30 Bedside Glucose 279 H 180 Medications Medications Current Medications Ondansetron HCl (Zofran Inj) 4 mg Q6H PRN IV NAUSEA AND/OR VOMITING Last administered on 04/17/17 02:32; Admin Dose 4 MG; Start 04/13/17 at 19:30 Acetaminophen (Tylenol Tab) 650 mg Q6H PRN PO PAIN LEVEL 1-3 OR FEVER; Start at 19:30 Acetaminophen/ Hydrocodone Bitart ([place] (5/325)) 1 tab Q6H PRN PO MODERATE PAIN LEVEL 4-6; Start 04/13/17 at 19:30 Morphine Sulfate (morphine) 2 mg Q4H PRN IV SEVERE PAIN LEVEL 7-10 Last administered on 04/17/17 02:32; Admin Dose 2 MG; Start 04/13/17 at 19:30 Docusate Sodium (Colace) 100 mg Q12H PRN PO CONSTIPATION; Start 04/13/17 at 19: 30 Zolpidem Tartrate (Ambien) 5 mg QHS PRN PO SLEEP; Start 04/13/17 at 19:30 Miscellaneous Information 1 ea NOTE XX ; Start 04/14/17 at 14:30 Glucose (Glutose) 15 gm Q15M PRN PO DECREASED GLUCOSE; Start 04/14/17 at 14:30 Glucose (Glutose) 22.5 gm Q15M PRN PO DECREASED GLUCOSE; Start 04/14/17 at 14: 30 Dextrose (D50w Syringe) 25 ml Q15M PRN IV DECREASED GLUCOSE; Start 04/14/17 at 14:30 Dextrose (D50w Syringe) 50 ml Q15M PRN IV DECREASED GLUCOSE; Start 04/14/17 at 14:30 Glucagon (Glucagen) 1 mg Q15M PRN IM DECREASED GLUCOSE; Start 04/14/17 at 14:30 Glucose (Glutose) 15 gm Q15M PRN BUCCAL DECREASED GLUCOSE; Start 04/14/17 at 14 :30 Isosorbide Dinitrate (Isordil) 10 mg TID PO Last administered on 04/18/17 13: 32; Admin Dose 10 MG; Start 04/14/17 at 21:00 Carvedilol (Coreg) 3.125 mg BID PO Last administered on 04/18/17 08:53; Admin Dose 3.125 MG; Start 04/14/17 at 21:00 Lisinopril (Zestril) 2.5 mg DAILY PO Last administered on 04/18/17 11:45; Admin Dose 2.5 MG; Start 04/15/17 at 09:00 Furosemide (Lasix) 20 mg DAILY PO Last administered on 04/18/17 08:52; Admin Dose 20 MG; Start 04/15/17 at 09:00 Acetaminophen (Tylenol Tab) 650 mg Q4H PRN PO NON-CARDIAC PAIN LEVEL (1-3); Start 04/14/17 at 18:30 Morphine Sulfate (morphine) 2 mg Q2H PRN IV FOR NON CARDIAC PAIN (4-10); Start 04/14/17 at 18:30 Al Hydrox/Mg Hydrox/Simethicone (Mag-Al Plus) 30 ml Q4H PRN PO GASTROINTESTINAL UPSET; Start 04/14/17 at 18:30 Ondansetron HCl (Zofran Inj) 4 mg Q4H PRN IV NAUSEA AND/OR VOMITING; Start at 18:30 Diagnostic Test (Pha) (Accu-Chek) 1 ea 02 XX Last administered on 04/18/17 02: 33; Admin Dose 1 EA; Start 04/17/17 at 02:00 Diagnostic Test (Pha) (Accu-Chek) 1 XX ; Start 04/17/17 at 02:00 Insulin Glargine (Lantus) 22 unit DAILY@08 SC Last administered on 04/18/17 08 :07; Admin Dose 22 UNIT; Start 04/17/17 at 08:00 ARTURO DOTSON MD Apr 18, 2017 17:36
--- NOTE | 2017-04-18 20:20 | PN ---
Date/Time of Note Date/Time of Note DATE: 04/18/17 TIME: 20:17 Assessment/Plan Lines/Catheters IV Catheter Type (from Nrsg): Saline Lock Benitez in Place (from Nrsg): No Assessment/Plan Chief Complaint/Hosp Course 3V CAD Patient with poor ejection fraction at 25% Diffuse coronary artery disease CHF improving This time I would recommend to continue medical management Reevaluate for coronary artery bypass grafting after CHF is treated if ejection fraction improved Cuspid the patient Scars with the referring physicians Problems: Subjective 24 Hr Interval Summary Constitutional: improved Pain Control: mild Exam/Review of Systems Vital Signs Vitals Vital Signs Date Time Temp Pulse Resp B/P Pulse Ox O2 Delivery O2 Flow Rate FiO2 04/18/17 19:50 97.8 73 18 101/63 98 04/17/17 19:37 Room Air Intake and Output 04/17/17 04/17/17 04/18/17 15:00 23:00 07:00 Intake Total 250 ml Balance 250 ml Exam Eyes: EOMI, nl conjunctiva, nl lids, nl sclera ENMT: mucosa pink and moist, nl external ears & nose, nl lips & teeth, nl nasal mucosa & septum Neck: non-tender, supple Respiratory: clear to auscultation, normal air movement Cardiovascular: nl pulses, regular rate and rhythm Gastrointestinal: nl liver, spleen, non-tender, soft Results Result Diagram: 04/14/17 0559 04/17/17 0614 NOEL GERARD MD Apr 18, 2017 20:20
[2017-04-19] VITALS (7 sets, daily range): BP systolic 92–112; BP diastolic 52–72; PULSE 65–74; RESP 18–20
[2017-04-19] MEDS: ACCU-CHEK XX SCH ×2 (02:00)
[2017-04-19] MEDS: ISOSORBIDE DINITRATE 20 MG TAB PO SCH ×2 (08:36→13:00)
[2017-04-19] MEDS: LISINOPRIL 5 MG TAB PO SCH (08:36)
[2017-04-19] MEDS: FUROSEMIDE 20 MG TAB PO SCH (08:36)
[2017-04-19] MEDS: INSULIN GLARGINE [LANtus] 3 ML PEN SC SCH (08:40)
[2017-04-19] MEDS: INSULIN ASPART [NOVOLOG] 3 ML PEN SC SCH ×4 (08:41→12:10)
--- NOTE | 2017-04-19 09:26 | CONS ---
Date/Time of Note Date/Time of Note DATE: 04/19/17 TIME: 09:25 Assessment/Plan Assessment/Plan Additional Assessment/Plan 1. CAD - severe multivessel obstructive cad - s/p LHC - severe Dz - surgical eval done - will discuss with CT team. 2. Hypertension-borderline hotn - better now. BETTER. 3. Abnormal electrocardiogram. Assess for acute cardiac syndrome. 4. History of abnormal cardiac stress test on outpatient - now Severe dz. 5. Dyslipidemia. 6. History of myocardial infarction 7. Dementia by medications. 8. Diabetes mellitus with uncontrolled blood sugars - con't to keep euglycemic. 9. Mild anemia. 10. CHF - syst HF, chronic. Consultation Date/Type/Reason Admit Date/Time Apr 13, 2017 at 16:23 Type of Consultation: cardiology Referring Provider: CHRISS HAYES 24 HR Interval Summary Free Text/Dictation NO acute events - con't med Rx now. ROS: No fever, no chills, no nausea, no vomiting, no diarrhea/constipation No recent weight changes No chest pain, no PND, no orthopnea No dizziness, blurred vision No thirst, no heat or cold intolerance Exam/Review of Systems Vital Signs Vitals Vital Signs Date Time Temp Pulse Resp B/P Pulse Ox O2 Delivery O2 Flow Rate FiO2 04/19/17 08:00 74 04/19/17 07:20 98.0 20 112/72 98 04/17/17 19:37 Room Air Intake and Output 04/18/17 04/18/17 04/19/17 15:00 23:00 07:00 Intake Total 1300 ml Balance 1300 ml Exam General: WN/WD/NAD, AOx 3 HEENT: Unicetric/atraumatic/EOMI (follow commands) NECK: JVD elevated, no thyromegaly Lymph: no lymphadenopathy HEART: regular with no S3, II/ systolic murmur at apex, PMI L LUNGS: Coarse sounds ABD: soft, NT, ND, +BS : Intact Neuro: non focal SKIN: chronic changes EXT: trace edema Results Result Diagram: 04/17/17 0614 Results 24 hrs Laboratory Tests Test 04/18/17 11:41 04/18/17 17:30 04/18/17 21:14 Bedside Glucose 279 H 180 134 Medications Medications Current Medications Ondansetron HCl (Zofran Inj) 4 mg Q6H PRN IV NAUSEA AND/OR VOMITING Last administered on 04/17/17 02:32; Admin Dose 4 MG; Start 04/13/17 at 19:30 Acetaminophen (Tylenol Tab) 650 mg Q6H PRN PO PAIN LEVEL 1-3 OR FEVER; Start at 19:30 Acetaminophen/ Hydrocodone Bitart ([place] (5/325)) 1 tab Q6H PRN PO MODERATE PAIN LEVEL 4-6; Start 04/13/17 at 19:30 Morphine Sulfate (morphine) 2 mg Q4H PRN IV SEVERE PAIN LEVEL 7-10 Last administered on 04/17/17 02:32; Admin Dose 2 MG; Start 04/13/17 at 19:30 Docusate Sodium (Colace) 100 mg Q12H PRN PO CONSTIPATION; Start 04/13/17 at 19: 30 Miscellaneous Information 1 ea NOTE XX ; Start 04/14/17 at 14:30 Glucose (Glutose) 15 gm Q15M PRN PO DECREASED GLUCOSE; Start 04/14/17 at 14:30 Glucose (Glutose) 22.5 gm Q15M PRN PO DECREASED GLUCOSE; Start 04/14/17 at 14: 30 Dextrose (D50w Syringe) 25 ml Q15M PRN IV DECREASED GLUCOSE; Start 04/14/17 at 14:30 Dextrose (D50w Syringe) 50 ml Q15M PRN IV DECREASED GLUCOSE; Start 04/14/17 at 14:30 Glucagon (Glucagen) 1 mg Q15M PRN IM DECREASED GLUCOSE; Start 04/14/17 at 14:30 Glucose (Glutose) 15 gm Q15M PRN BUCCAL DECREASED GLUCOSE; Start 04/14/17 at 14 :30 Isosorbide Dinitrate (Isordil) 10 mg TID PO Last administered on 04/19/17 08: 36; Admin Dose 10 MG; Start 04/14/17 at 21:00 Carvedilol (Coreg) 3.125 mg BID PO Last administered on 04/19/17 08:37; Admin Dose 3.125 MG; Start 04/14/17 at 21:00 Lisinopril (Zestril) 2.5 mg DAILY PO Last administered on 04/19/17 08:36; Admin Dose 2.5 MG; Start 04/15/17 at 09:00 Furosemide (Lasix) 20 mg DAILY PO Last administered on 04/19/17 08:36; Admin Dose 20 MG; Start 04/15/17 at 09:00 Acetaminophen (Tylenol Tab) 650 mg Q4H PRN PO NON-CARDIAC PAIN LEVEL (1-3); Start 04/14/17 at 18:30 Al Hydrox/Mg Hydrox/Simethicone (Mag-Al Plus) 30 ml Q4H PRN PO GASTROINTESTINAL UPSET; Start 04/14/17 at 18:30 Ondansetron HCl (Zofran Inj) 4 mg Q4H PRN IV NAUSEA AND/OR VOMITING; Start at 18:30 Diagnostic Test (Pha) (Accu-Chek) 1 ea 02 XX Last administered on 04/18/17 02: 33; Admin Dose 1 EA; Start 04/17/17 at 02:00 Diagnostic Test (Pha) (Accu-Chek) 1 ea 02 XX ; Start 04/17/17 at 02:00 Insulin Glargine (Lantus) 22 unit DAILY@08 SC Last administered on 04/19/17 08 :40; Admin Dose 22 UNIT; Start 04/17/17 at 08:00 BUCK BEYER MD Apr 19, 2017 09:26
--- NOTE | 2017-04-19 12:22 | PN ---
Date/Time of Note Date/Time of Note DATE: 04/19/17 TIME: 12:21 Assessment/Plan Lines/Catheters IV Catheter Type (from Nrsg): Saline Lock Benitez in Place (from Nrsg): No Assessment/Plan Chief Complaint/Hosp Course 3V CAD Patient with poor ejection fraction at 25% Diffuse coronary artery disease CHF improving This time I would recommend to continue medical management Reevaluate for coronary artery bypass grafting after CHF is treated if ejection fraction improved Discussed with the patient Will Discuss with the referring physicians Problems: Subjective 24 Hr Interval Summary Constitutional: improved Pain Control: mild Exam/Review of Systems Vital Signs Vitals Vital Signs Date Time Temp Pulse Resp B/P Pulse Ox O2 Delivery O2 Flow Rate FiO2 04/19/17 11:03 97.9 74 20 92/52 100 04/17/17 19:37 Room Air Intake and Output 04/18/17 04/18/17 04/19/17 15:00 23:00 07:00 Intake Total 1300 ml Balance 1300 ml Exam ENMT: mucosa pink and moist, nl external ears & nose, nl lips & teeth, nl nasal mucosa & septum Neck: non-tender, supple Respiratory: clear to auscultation, normal air movement Cardiovascular: nl pulses, regular rate and rhythm Gastrointestinal: nl liver, spleen, non-tender, soft Results Result Diagram: 04/17/17 0614 NOEL GERARD MD Apr 19, 2017 12:22
[2017-04-19] MEDS ORDERED: CARV3.1260 PO (12:31)
[2017-04-19] MEDS ORDERED: LISI-313 PO (12:31)
[2017-04-19] MEDS ORDERED: LAS20 PO (12:31)
[2017-04-19] MEDS ORDERED: ASPI-664 PO (12:31)
[2017-04-19] MEDS ORDERED: ISOS20TA19 PO (12:31)
[2017-04-19] MEDS ORDERED: LANT3I SC (12:31)
[2017-04-19] MEDS ORDERED: EMPA25TA PO (12:34)
--- NOTE | 2017-04-19 12:43 | PDOCDIS ---
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 [address] [place] [address] Office ARTURO DOTSON MD Apr 19, 2017 12:43
--- NOTE | 2017-04-19 13:05 | DS ---
Date/Time of Note Date/Time of Note DATE: 04/19/17 TIME: 13:03 Discharge Summary Admission/Discharge Info Admit Date/Time Apr 13, 2017 at 16:23 Discharge Date/Time Discharge Diagnosis 3 vessel coronary artery disease, systolic heart failure, diabetes Patient Condition: Stable Consults cardiology, cardiothoracic surgery Procedures a1c 9.0 LDL 119 9.13 CXR IMPRESSION: 1. Normal chest radiograph. 04.14 TTE Conclusions 1. Normal left ventricular wall thickness. Severe concentric left ventricular hypertrophy. Severe global left ventricular systolic dysfunction. Ejection fraction is visually estimated at 25 %. 2. Mitral valve leaflets appear mildly thickened. Mild mitral annular calcification. Moderate mitral valve regurgitation. 3. Normal appearance of the tricuspid valve. Estimated peak PA systolic pressure 29 mmHg. There is trace tricuspid regurgitation. 4. Normal pulmonic valve appearance. There is trace pulmonic regurgitation. 04.14 LHC IMPRESSION: 1. Severe multivessel obstructive coronary artery disease. 2. Elevated left heart filling pressures. 3. No significant aortic stenosis by gradient. Hx of Present Illness Patient is 56-year-old male with history of diabetes, hypertension and NM presents with exertional chest pain and intermittent shortness of breath 1 week , he and his state they have an appointment with fusing machine feeder Dr. Harkins for possible diagnostic angiogram scheduled for next month but came in because of chest pain. Pt has no other acute complaints. Hospital Course Pt had LHC shortly after arrival, notable for 3v CAD. Pt seen by cardiac surgeon who advised medical optimization and re eval of EF prior to proceeding with CABG. Pt started on CAD regimen with asa, bb, long acting nirite, acei lasix, statin. Insulin added to home DM regimen to also help with CAD. Pt to follow up with PCP for DM, cardiology and CT surgeon for CAD. Home Meds Reported Medications Acetaminophen* (Tylenol*) 500 Mg Tab, 500 MG PO Q4H Y for MILD PAIN LEVEL 1-3, TAB 04/13/17 Discontinued Reported Medications Ipratropium-Albuterol (Ipratropium-Albuterol) 0.5-3 Mg/3 Ml Ampul.neb, 3 ML INHALATION Q4 Y for WHEEZING AND SOB, #30 VIAL 04/13/17 Ondansetron Hcl* (Zofran*) 4 Mg Tab, 4 MG GTB Q4H Y for NAUSEA AND OR VOMITING, TAB 04/13/17 Levetiracetam* (Keppra*) 500 Mg/5 Ml Solution, 500 MG GTB BID, BOTTLE 04/13/17 [Basaglar] No Conflict Check, 20 UNITS SUBCUTANE QHS 04/13/17 Docusate Sodium* (Docusate Sodium*) 100 Mg Capsule, 100 MG GTB BID, #60 CAP 04/13/17 Donepezil* (Donepezil*) 10 Mg Tablet, 10 MG GTB DAILY, #30 TAB 04/13/17 Amino Acids/Protein Hydrolys (PRO-STAT AWC LIQUID) 887 Ml Liquid, 30 ML GTB DAILY 04/13/17 Clopidogrel Bisulfate (Clopidogrel) 75 Mg Tablet, 75 MG GTB DAILY, #30 TAB 04/13/17 Multivitamins* (Theragran*) 1 Tab Tab, 1 TAB GTB DAILY, TAB 04/13/17 Follow-up Plan Follow up with your regular doctor regarding your diabetes, as well as the fusing machine feeder, and the cardiac surgeon within [address] Beyer Office Address [address] [place] [address] Duarte Office Address [address] [place] [address]. [address] [place] [address] Office Primary Care Provider Kleber Harkins Time spent on discharge: > 30 minutes Pending Labs Laboratory Tests Test 04/18/17 17:30 04/18/17 21:14 04/19/17 08:32 04/19/17 12:06 Bedside Glucose 180mg/dL (70-220) 134mg/dL (70-220) 196mg/dL (70-220) 255mg/dL (70-220) Copies To: CC: BUCK BEYER MD; NOEL GERARD MD, ELLEN MD Apr 19, 2017 13:05
[2017-04-19] MEDS ORDERED: BLOO1EAC85 MC (15:30)
[2017-04-19] MEDS ORDERED: lancets (15:32)
[2017-04-19] MEDS ORDERED: GLUCOSE TEST STRIP (15:33)
== END 2017-04-19 15:35 | disposition home or self-care (01) | DRG 287 ==
LOC: E/R 08:54 → TEL 16:23
PROVIDERS: ADMIT Internal Medicine; ATTEND Internal Medicine
PROC: B211YZZ Fluoroscopy of Multiple Coronary Arteries using Other Contrast (ICD-10-PCS; 2017-04-14)
PROC: 4A023N7 Measurement of Cardiac Sampling and Pressure, Left Heart, Percutaneous Approach (ICD-10-PCS; principal; 2017-04-14 16:30)
DX: I25.10 Atherosclerotic heart disease of native coronary artery without angina pectoris (principal); F03.90 Unspecified dementia, unspecified severity, without behavioral disturbance, psychotic disturbance, mood disturbance, and anxiety; I11.0 Hypertensive heart disease with heart failure; I50.22 Chronic systolic (congestive) heart failure; I42.9 Cardiomyopathy, unspecified; E11.65 Type 2 diabetes mellitus with hyperglycemia; E78.5 Hyperlipidemia, unspecified; Z79.4 Long term (current) use of insulin; D64.9 Anemia, unspecified; I25.2 Old myocardial infarction; Z87.891 Personal history of nicotine dependence
CPT/HCPCS: 36415; 71010; 80048; 80053; 80061; 82962; 83036; 83690; 83735; 84100; 84484; 85025; 93005; 93306; 93458; 96374; 96375; C1887; J1644; J1815; J1885; J2250; J2270; J2405; J3010; J3475; J7030